=== PATIENT | male | born 1950 | race Caucasian/White ===

== ENCOUNTER → 2016-06-08 | Outpatient (CLI) | payer OTHER ==
[2014-12-27 17:55] VITALS: BP 121/69
[~2016-06-08] MED LIST: ASPI325T4 PO; CARV6.25 PO; CLOP75TA PO; LISI2.5T PO; NITR0.4T SL; SIMV40TA3 PO
--- NOTE | 2016-06-08 16:07 | CARD ---
APPROVED REPORT EXAM: Two-dimensional and M-mode echocardiogram with Doppler and color Doppler. Other Information Quality : GoodHR: 60bpm Rhythm : NSR INDICATION Chronic systolic heart failure RISK FACTORS Hypertension Family History 2D DIMENSIONS RVDd2.9 (2.9-3.5cm)Left Atrium(2D)3.0 (1.6-4.0cm) IVSd0.9 (0.7-1.1cm)Aortic Root(2D)3.9 (2.0-3.7cm) LVDd5.7 (3.9-5.9cm)LVOT Diameter2.5 (1.8-2.4cm) PWd0.9 (0.7-1.1cm)LVDs4.8 (2.5-4.0cm) FS (%) 16.0 %SV52.5 ml LVEF(%)33.3 (>50%) Aortic Valve AoV Peak Moreno.138.5cm/sAoV VTI30.6cm AO Peak GR.7.7mmHgLVOT Peak Moreno.109.1cm/s AO Mean GR.4mmHgAVA (VMAX)3.75cm2 Mitral Valve MV E Mfoetduj70.2cm/sMV E Peak Gr.2mmHg MV DECEL [id number] A Arfjjxmi56.9cm/s MV E Mean Gr.1mmHgE/A Ratio1.3 MV A Sbqkducu170uq Pulmonary Valve PV Peak Twkvtofa343.1cm/s Tricuspid Valve TR P. Djqsolss441oq/sTR Peak Gr.23mmHg Pulmonary Vein S1 Uronpito37.0cm/sD2 Njhwxgtn64.4cm/s PVa ysyievpx80nrsy LEFT VENTRICLE The left ventricle is normal size. There is normal left ventricular wall thickness. Left ventricle sy stolic function is moderately impaired. The Ejection Fraction is 35-40%. There is moderate global hyp okinesis of the left ventricle. There is severe hypokinesis of the septum. The left ventricular diast olic function and filling is normal for age. No left ventricle thrombus noted on this study. RIGHT VENTRICLE The right ventricle is normal size. There is normal right ventricular wall thickness. The right ventr icular systolic function is normal. A defibrillator lead is noted in the right ventricle. ATRIA The left atrium size is normal. The right atrium size is normal. The interatrial septum is intact wit h no evidence for an atrial septal defect or patent foramen ovale as noted on 2-D or Doppler imaging. AORTIC VALVE The aortic valve is mildly The aortic valve is trileaflet. Doppler and Color Flow revealed no signifi cant aortic regurgitation. There is no significant aortic valvular stenosis. MITRAL VALVE The mitral valve leaflets are thickened. There is no evidence of mitral valve prolapse. There is no m itral valve stenosis. Doppler and Color Flow revealed mild mitral regurgitation. TRICUSPID VALVE Doppler and Color Flow revealed mild tricuspid regurgitation. The pulmonary artery systolic pressure is estimated at 26 mmHg. There is no pulmonary hypertension. PULMONIC VALVE Doppler and Color Flow revealed mild pulmonic valvular regurgitation. There is no pulmonic valvular s tenosis. GREAT VESSELS The aortic root is mildly enlarged. The ascending aorta is normal in size. The IVC was obscured, unab le to assess. PERICARDIAL EFFUSION There is no evidence of significant pericardial effusion. Critical Notification Critical Value: No <Conclusion> Left ventricle systolic function is moderately impaired. The Ejection Fraction is 35-40%. There is moderate global hypokinesis of the left ventricle. There is severe hypokinesis of the septum . A defibrillator lead is noted in the right ventricle.
== END | disposition home or self-care (01) ==
LOC: ECHO 09:57
PROVIDERS: ATTEND Internal Medicine Cardiovascular Disease
DX: I50.22 Chronic systolic (congestive) heart failure (principal)
CPT/HCPCS: 93306

== ENCOUNTER → 2017-03-23 | Outpatient (CLI) | payer OTHER ==
[2017-03-23 12:46] LABS: ADD MAN DIFF? NO
[2017-03-23 12:59] LABS: BASO # 0.1 x10^3/uL (0.0-0.2); BASO % 1 % (0-3); EOS # 0.5 x10^3/uL (0.0-0.7); EOS % 8 % (0-3); HEMATOCRIT 45.4 % (39.0-53.0); HEMOGLOBIN 15.9 g/dL (13.0-17.5); LYMPH # 2.2 x10^3/uL (1.0-4.8); LYMPH % 32 % (24-48); MEAN CORPUSCULAR HEMOGLOBIN 32 pg (25-35); MEAN CORPUSCULAR HGB CONC 35 g/dL (31-37); MEAN CORPUSCULAR VOLUME 92 fL (79-100); MONO # 0.6 x10^3/uL (0.0-1.1); MONO % 8 % (0-9); NEUT # 3.5 x10^3uL (1.8-7.7); NEUT % 51 % (31-73); PLATELET COUNT 191 x10^3/uL (140-400); RED BLOOD COUNT 4.93 x10^6/uL (4.30-5.70); WHITE BLOOD COUNT 6.8 x10^3/uL (4.0-11.0)
[2017-03-23 13:04] LABS: BILIRUBIN,URINE NEGATIVE (NEG); CLARITY,URINE CLEAR; COLOR,URINE YELLOW; GLUCOSE,URINE NEGATIVE (NEG); NITRITE,URINE NEGATIVE (NEG); PH,URINE 5.5; PROTEIN,URINE NEGATIVE (NEG-TRACE); UROBILINOGEN,URINE 0.2 mg/dL (0.2 mg/dL)
[2017-03-23 13:19] LABS: ALBUMIN 4.1 g/dL (3.4-5.0); ALK PHOS 50 U/L (46-116); ALT (SGPT) 28 U/L (16-63); ANION GAP 4 (6-14); AST (SGOT) 23 U/L (15-37); BLOOD UREA NITROGEN 18 mg/dL (8-26); BUN/CREATININE RATIO 16 (6-20); CALCIUM 9.3 mg/dL (8.5-10.1); CARBON DIOXIDE 33 mmol/L (21-32); CHLORIDE 101 mmol/L (98-107); CHOLESTEROL 197 mg/dL (0-200); CREATININE 1.1 mg/dL (0.7-1.3); GFR 67.2; GLUCOSE 109 mg/dL (70-99); HDLC 60 mg/dL (40-60); LDLC 123 mg/dL (0-100); MAGNESIUM 2.3 mg/dL (1.8-2.4); NON-HDL CHOLESTEROL 137 mg/dL (0-129); POTASSIUM 5.2 mmol/L (3.5-5.1); SODIUM 138 mmol/L (136-145); TOTAL BILIRUBIN 0.4 mg/dL (0.2-1.0); TOTAL PROTEIN 8.2 g/dL (6.4-8.2); TRIGLYCERIDES 71 mg/dL (0-150); URIC ACID 6.8 mg/dL (3.5-7.2); VLDLC 14 mg/dL (0-40)
[2017-03-23 13:20] LABS: CHOLESTEROL/HDL RATIO 3.3
[2017-03-23 13:23] LABS: BACTERIA,URINE 0 /HPF (0-FEW); WBC,URINE OCC /HPF (0-4)
[2017-03-23 13:32] LABS: THYROID STIM HORMONE (TSH) 1.633 uIU/mL (0.358-3.74)
[2017-03-23 13:44] LABS: PROSTATE SPECIFIC ANTIGEN 0.75 ng/mL (0.00-4.00)
[2017-03-23 14:07] LABS: SEDIMENTATION RATE 1 (0-15)
[2017-03-23 22:15] LABS: HEMOGLOBIN A1C 5.2 % (4.8-5.6)
[2017-03-24 00:13] LABS: HCV ANTIBODY <0.1 s/co ratio (0.0-0.9)
== END | disposition home or self-care (01) ==
LOC: LAB 12:27
DX: Z12.5 Encounter for screening for malignant neoplasm of prostate (principal); I25.10 Atherosclerotic heart disease of native coronary artery without angina pectoris; I10 Essential (primary) hypertension; I42.9 Cardiomyopathy, unspecified; M15.8 Other polyosteoarthritis; R79.89 Other specified abnormal findings of blood chemistry; Z72.89 Other problems related to lifestyle
CPT/HCPCS: 36415; 80053; 80061; 81001; 82306; 83036; 83735; 84443; 84550; 85025; 85651; 86803; G0103

== ENCOUNTER → 2017-04-06 | Outpatient (CLI) | payer OTHER | END | disposition home or self-care (01) | LOC: SPEC 17:14 | DX: D48.5 Neoplasm of uncertain behavior of skin (principal) | CPT/HCPCS: 88305 ==

== ENCOUNTER → 2017-04-24 | Outpatient (CLI) | payer OTHER ==
[2017-04-24 15:02] LABS: BILIRUBIN,URINE NEGATIVE (NEG); CLARITY,URINE CLEAR; COLOR,URINE YELLOW; GLUCOSE,URINE NEGATIVE (NEG); NITRITE,URINE NEGATIVE (NEG); PH,URINE 5.5; PROTEIN,URINE NEGATIVE (NEG-TRACE); UROBILINOGEN,URINE 0.2 mg/dL (0.2 mg/dL)
[2017-04-24 15:16] LABS: BACTERIA,URINE 0 /HPF (0-FEW); RBC,URINE 0 /HPF (0-2); SQUAMOUS EPITHELIAL CELL,UR OCC /LPF; WBC,URINE 0 /HPF (0-4)
== END | disposition home or self-care (01) ==
LOC: SPEC 14:32
DX: R82.90 Unspecified abnormal findings in urine (principal)
CPT/HCPCS: 81001

== ENCOUNTER → 2017-09-27 | Outpatient (CLI) | payer OTHER ==
[2014-12-27 17:55] VITALS: BP 121/69
[~2017-09-27] MED LIST changes: -ASPI325T4 PO; +ASPI325T8 PO
[2017-09-27 17:24] LABS: CALCIUM 9.3 mg/dL (8.5-10.1); CREATININE 1.1 mg/dL (0.7-1.3); POTASSIUM 4.4 mmol/L (3.5-5.1)
== END | disposition home or self-care (01) ==
LOC: SPEC 16:58
PROVIDERS: ATTEND Internal Medicine Cardiovascular Disease
DX: I11.0 Hypertensive heart disease with heart failure (principal); I50.22 Chronic systolic (congestive) heart failure; I25.10 Atherosclerotic heart disease of native coronary artery without angina pectoris; E78.00 Pure hypercholesterolemia, unspecified; Z87.891 Personal history of nicotine dependence; Z90.49 Acquired absence of other specified parts of digestive tract
CPT/HCPCS: 36415; 80048

== ENCOUNTER → 2018-01-08 | Outpatient (CLI) | payer OTHER ==
[2014-12-27 17:55] VITALS: BP 121/69
--- NOTE | 2018-01-08 16:56 | CARD ---
MR#: [id number] Date of Study: 01/08/2018 Ordering Physician: XU BLAKELY, Referring Physician: XU BLAKELY, Tech: Windy Hanley APPROVED REPORT EXAM: Two-dimensional and M-mode echocardiogram with Doppler and color Doppler. Other Information Quality : Good INDICATION Cardiomyopathy RISK FACTORS Hypertension Hyperlipidemia 2D DIMENSIONS Left Atrium(2D)3.2 (1.6-4.0cm)IVSd1.0 (0.7-1.1cm) Aortic Root(2D)3.6 (2.0-3.7cm)LVDd4.7 (3.9-5.9cm) LVOT Diameter2.5 (1.8-2.4cm)PWd1.2 (0.7-1.1cm) LVDs3.0 (2.5-4.0cm)FS (%) 35.4 % SV66.8 ml Aortic Valve AoV Peak Moreno.109.0cm/sAoV VTI20.3cm AO Peak GR.4.8mmHgLVOT Peak Moreno.95.6cm/s LVOT VTI 20.34cmAO Mean GR.3mmHg NAZARIO (VMAX)3.90be8GNF (VTI)4.75cm2 Mitral Valve MV E Xlwhjgoo72.8cm/sMV DECEL QUMX214wl MV A Zjwickfs73.4cm/sMV VQZ47st E/A Ratio1.1MVA (PHT)2.35cm2 TDI E/Lateral E'6.1E/Medial E'9.4 Pulmonary Valve PV Peak Tplryhkq565.0cm/sPV Peak Grad.5mmHg Tricuspid Valve RAP [id number] Pulmonary Vein S1 Odziwxba50.2cm/sD2 Bniidtvf49.1cm/s LEFT VENTRICLE Technically difficult study. The left ventricle is normal size. There is borderline concentric left v entricular hypertrophy. The systolic function is mild to moderately impaired. The Ejection Fraction i s estimated at 35 to 40%. There is global hypokinesis of the left ventricle. Transmitral Doppler flow pattern is Grade II-pseudonormal filling dynamics. RIGHT VENTRICLE The right ventricle is normal size. There is normal right ventricular wall thickness. The right ventr icular systolic function is normal. ATRIA The left atrium size is normal. The right atrium size is normal. There is a thickening or calcificati on in the right atrium. The interatrial septum is intact with no evidence for an atrial septal defect or patent foramen ovale as noted on 2-D or Doppler imaging. AORTIC VALVE The aortic valve is thickened but opens well. Doppler and Color Flow revealed trace aortic regurgitat ion. There is no significant aortic valvular stenosis. MITRAL VALVE The mitral valve is normal in structure and function. Doppler and Color-flow revealed trace to mild m itral regurgitation. TRICUSPID VALVE The tricuspid valve is normal in structure and function. Doppler and Color Flow revealed trace tricus pid regurgitation. PULMONIC VALVE The pulmonic valve is not well visualized. Doppler and Color Flow revealed trace pulmonic valvular re gurgitation. GREAT VESSELS The aortic root is normal in size. Normal pulmonary venous flow (Doppler). The IVC was not visualized . PERICARDIAL EFFUSION There is no evidence of significant pericardial effusion. Critical Notification Critical Value: No <Conclusion> Technically difficult study. The left ventricle is normal size. The systolic function is mild to moderately impaired. The Ejection Fraction is estimated at 35 to 40%. There is global hypokinesis of the left ventricle. There is borderline concentric left ventricular hypertrophy. There is no significant aortic valvular stenosis. Doppler and Color Flow revealed trace aortic regurgitation. Doppler and Color-flow revealed trace to mild mitral regurgitation. Doppler and Color Flow revealed trace tricuspid regurgitation. Signed by : Xu Blakely MD Electronically Approved : 01/08/2018 16:55:52
== END | disposition home or self-care (01) ==
LOC: ECHO 11:02
PROVIDERS: ATTEND Internal Medicine Cardiovascular Disease
DX: I34.0 Nonrheumatic mitral (valve) insufficiency (principal); I37.1 Nonrheumatic pulmonary valve insufficiency; I42.9 Cardiomyopathy, unspecified; I10 Essential (primary) hypertension; E78.5 Hyperlipidemia, unspecified
CPT/HCPCS: 93306

== ENCOUNTER 2018-07-13 23:47 | Inpatient (IN) | payer OTHER ==
[~2018-07-13] VITALS: Ht 180.3 cm; Wt 91.4 kg
[2018-07-14] VITALS (7 sets, daily range): BP systolic 98–118; BP diastolic 56–72
[2018-07-14] MEDS ORDERED: IV NORMAL SALINE 1000ML BAG 1,000 ML IV ONE (02:30)
[2018-07-14] MEDS ORDERED: ASPIRIN 325 MG TABLET PO ONE (02:45)
[2018-07-14 03:16] LABS: BASO # 0.1 x10^3/uL (0.0-0.2); BASO % 1 % (0-3); EOS # 0.5 x10^3/uL (0.0-0.7); EOS % 6 % (0-3); HEMATOCRIT 43.7 % (39.0-53.0); HEMOGLOBIN 15.1 g/dL (13.0-17.5); LYMPH % 37 % (24-48); MEAN CORPUSCULAR HEMOGLOBIN 32 pg (25-35); MEAN CORPUSCULAR HGB CONC 35 g/dL (31-37); MEAN CORPUSCULAR VOLUME 93 fL (79-100); MONO # 0.6 x10^3/uL (0.0-1.1); MONO % 7 % (0-9); NEUT # 4.1 x10^3uL (1.8-7.7); NEUT % 49 % (31-73); PLATELET COUNT 169 x10^3/uL (140-400); RED BLOOD COUNT 4.72 x10^6/uL (4.30-5.70); WHITE BLOOD COUNT 8.2 x10^3/uL (4.0-11.0)
[2018-07-14 03:26] LABS: PROTHROMBIN TIME PATIENT 12.7 SEC (11.7-14.0)
[2018-07-14 03:34] LABS: CALCIUM 9.1 mg/dL (8.5-10.1); CREATININE 1.1 mg/dL (0.7-1.3); GFR 66.8; POTASSIUM 3.6 mmol/L (3.5-5.1)
[2018-07-14 03:43] LABS: ALBUMIN 4.1 g/dL (3.4-5.0); ALBUMIN/GLOBULIN RATIO 1.1 (1.0-1.7); MAGNESIUM 2.2 mg/dL (1.8-2.4); TOTAL BILIRUBIN 0.4 mg/dL (0.2-1.0); TOTAL PROTEIN 7.9 g/dL (6.4-8.2)
[2018-07-14] MEDS ORDERED: HEPARIN for IV BOLUS 10,000 UNIT/10 ML VIAL. IV ONE (03:45)
[2018-07-14] MEDS ORDERED: fentaNYL PF VIAL 100 MCG/2 ML VIAL IV PRN (04:00)
[2018-07-14] MEDS ORDERED: ONDANSETRON PF 4 MG/2 ML VIAL. IV PRN (04:00)
[2018-07-14] MEDS: HEPARIN 25,000UTS/500ML PREMIX 500 ML IV PRN ×2 (04:41→04:56)
--- NOTE | 2018-07-14 04:48 | PHYS DOC ---
Past Medical History Past Medical History: High Cholesterol, Hypertension, [place] Past Surgical History: Angioplasty, Appendectomy, Tonsillectomy, Other Additional Past Surgical Histo: defibulator, left knee, STENT X4 Alcohol Use: Heavy Drug Use: None Adult General Chief Complaint Chief Complaint: BACK PAIN - NO INJURY HPI HPI Patient is a 68 year old [f__sex] who presents with [] Review of Systems Review of Systems Constitutional: Denies fever or chills [] Eyes: Denies change in visual acuity, redness, or eye pain [] HENT: Denies nasal congestion or sore throat [] Respiratory: Denies cough or shortness of breath [] Cardiovascular: No additional information not addressed in HPI [] GI: Denies abdominal pain, nausea, vomiting, bloody stools or diarrhea [] : Denies dysuria or hematuria [] Musculoskeletal: Denies back pain or joint pain [] Integument: Denies rash or skin lesions [] Neurologic: Denies headache, focal weakness or sensory changes [] Endocrine: Denies polyuria or polydipsia [] All other systems were reviewed and found to be within normal limits, except as documented in this note. Current Medications Current Medications Current Medications Medications (Trade) Dose Ordered Sig/Angel Start Time Stop Time Status Last Admin Dose Admin Aspirin (Robert Aspirin) 325 mg 1X ONCE 07/14/18 02:45 07/14/18 02:47 DC 07/14/18 03:21 325 MG Fentanyl Citrate (Fentanyl 2ml Vial) 50 mcg PRN Q2HR PRN 07/14/18 04:00 Heparin Sodium (Porcine) (Heparin Sodium) 4,000 unit 1X ONCE 07/14/18 03:45 07/14/18 03:48 DC 07/14/18 04:38 4,000 UNIT Heparin Sodium/ Dextrose 500 ml @ 0 mls/hr CONT PRN 07/14/18 03:45 07/14/18 04:41 22.4 MLS/HR Ondansetron HCl (Zofran) 4 mg PRN Q8HRS PRN 07/14/18 04:00 07/15/18 03:59 Sodium Chloride 1,000 ml @ 1,000 mls/hr 1X ONCE 07/14/18 02:30 07/14/18 03:29 DC 07/14/18 03:22 1,000 MLS/HR Allergies Allergies Allergies Coded Allergies Type Severity Reaction Last Updated Verified No Known Drug Allergies 06/17/13 No Physical Exam Physical Exam Constitutional: Well developed, well nourished, no acute distress, non-toxic appearance. [] HENT: Normocephalic, atraumatic, bilateral external ears normal, oropharynx moist, no oral exudates, nose normal. [] Eyes: PERRLA, EOMI, conjunctiva normal, no discharge. [] Neck: Normal range of motion, no tenderness, supple, no stridor. [] Cardiovascular:Heart rate regular rhythm, no murmur [] Lungs & Thorax: Bilateral breath sounds clear to auscultation [] Abdomen: Bowel sounds normal, soft, no tenderness, no masses, no pulsatile masses. [] Skin: Warm, dry, no erythema, no rash. [] Back: No tenderness, no CVA tenderness. [] Extremities: No tenderness, no cyanosis, no clubbing, ROM intact, no edema. [] Neurologic: Alert and oriented X 3, normal motor function, normal sensory function, no focal deficits noted. [] Psychologic: Affect normal, judgement normal, mood normal. [] Current Patient Data Vital Signs Vital Signs Date Time Temp Pulse Resp B/P (MAP) Pulse Ox O2 Delivery O2 Flow Rate FiO2 07/14/18 00:47 97.5 60 16 122/70 (87) 99 Room Air 97.5 Lab Values Laboratory Tests Test 07/14/18 03:00 White Blood Count 8.2 x10^3/uL (4.0-11.0) Red Blood Count 4.72 x10^6/uL (4.30-5.70) Hemoglobin 15.1 g/dL (13.0-17.5) Hematocrit 43.7 % (39.0-53.0) Mean Corpuscular Volume 93 fL (79-100) Mean Corpuscular Hemoglobin 32 pg (25-35) Mean Corpuscular Hemoglobin Concent 35 g/dL (31-37) Red Cell Distribution Width 13.0 % (11.5-14.5) Platelet Count 169 x10^3/uL (140-400) Neutrophils (%) (Auto) 49 % (31-73) Lymphocytes (%) (Auto) 37 % (24-48) Monocytes (%) (Auto) 7 % (0-9) Eosinophils (%) (Auto) 6 % (0-3) H Basophils (%) (Auto) 1 % (0-3) Neutrophils # (Auto) 4.1 x10^3uL (1.8-7.7) Lymphocytes # (Auto) 3.0 x10^3/uL (1.0-4.8) Monocytes # (Auto) 0.6 x10^3/uL (0.0-1.1) Eosinophils # (Auto) 0.5 x10^3/uL (0.0-0.7) Basophils # (Auto) 0.1 x10^3/uL (0.0-0.2) Prothrombin Time 12.7 SEC (11.7-14.0) Prothrombin Time INR 1.0 (0.8-1.1) PTT 26 SEC (24-38) Sodium Level 143 mmol/L (136-145) Potassium Level 3.6 mmol/L (3.5-5.1) Chloride Level 105 mmol/L (98-107) Carbon Dioxide Level 27 mmol/L (21-32) Anion Gap 11 (6-14) Blood Urea Nitrogen 17 mg/dL (8-26) Creatinine 1.1 mg/dL (0.7-1.3) Estimated GFR (Cockcroft-Gault) 66.8 BUN/Creatinine Ratio 15 (6-20) Glucose Level 90 mg/dL (70-99) Calcium Level 9.1 mg/dL (8.5-10.1) Magnesium Level 2.2 mg/dL (1.8-2.4) Total Bilirubin 0.4 mg/dL (0.2-1.0) Aspartate Amino Transferase (AST) 24 U/L (15-37) Alanine Aminotransferase (ALT) 27 U/L (16-63) Alkaline Phosphatase 49 U/L (46-116) Creatine Kinase 246 U/L (39-308) Creatine Kinase MB (Mass) 3.9 ng/mL (0.0-3.6) H Creatine Kinase MB Relative Index 1.6 % (0-4) Troponin I Quantitative 0.622 ng/mL (0.000-0.055) QA-Fxu-C-Type Natriuretic Peptide 886 pg/mL (0-124) H Total Protein 7.9 g/dL (6.4-8.2) Albumin 4.1 g/dL (3.4-5.0) Albumin/Globulin Ratio 1.1 (1.0-1.7) Lipase 237 U/L (73-393) Laboratory Tests 07/14/18 03:00 Laboratory Tests 07/14/18 03:00 EKG EKG @0215 NSR at 60bpm, NO ST elevation, nonspecific t wave inversion III and aVF Radiology/Procedures Radiology/Procedures [] Course & Med Decision Making Course & Med Decision Making Pertinent Labs and Imaging studies reviewed. (See chart for details) [] Dragon Disclaimer Dragon Disclaimer This electronic medical record was generated, in whole or in part, using a voice recognition dictation system. Departure Departure Impression: Primary Impression: NSTEMI (non-ST elevated myocardial infarction) Disposition: ADMITTED INPATIENT Admitting Physician: ZEN (Vinayak) Condition: GUARDED Referrals: SALLY POPE (PCP) Critical Care Time Critical care time was 30 minutes which includes time at bedside, spent in discussion of patient's care with specialists and/or family members, with interpretation of laboratory and/or radiological studies and is exclusive of procedures. ROLANDO MCCOY DO Jul 14, 2018 04:48
--- NOTE | 2018-07-14 04:58 | NUR ---
The patient, ROLANDO ORTA, 68 y/o, M admitted by CALEB AYALA MD, was given written information regarding hospital policies, unit procedures and contact persons. Valuables were checked and patient has wrist pedi meter on and wears glasses. Patient denies pain at this time. RN will continue to monitor. Admission assessment, admission information obtained and reconcile medications.
[2018-07-14 04:59] LABS: BILIRUBIN,URINE NEGATIVE (NEG); CLARITY,URINE CLEAR; COLOR,URINE YELLOW; NITRITE,URINE NEGATIVE (NEG); PROTEIN,URINE NEGATIVE (NEG-TRACE)
[2018-07-14 05:14] LABS: BACTERIA,URINE 0 /HPF (0-FEW); RBC,URINE OCC /HPF (0-2); WBC,URINE 0 /HPF (0-4)
[2018-07-14] MEDS ORDERED: ASPI-612 PO (06:22)
[2018-07-14] MEDS ORDERED: CARV6.253 PO (06:22)
--- NOTE | 2018-07-14 06:45 | NUR ---
Cardiology Consult message left with answering service for Dr Vizcarra regarding NSTEMI admission.
--- NOTE | 2018-07-14 08:07 | PDOC1 ---
History and Physical Date of Admission Date of Admission DATE: 07/14/18 TIME: 08:04 Identification/Chief Complaint Chief Complaint Chest pain Source Source: Patient History of Present Illness History of Present Illness Mr Rubio is a 68yo M w/ PMHx systolic CHF EF 35-40% s/p AICD, High Cholesterol, Hypertension, ETOH use, obesity, CAD s/p 4 stents prior who presents with "feeling funny" and chest discomfort for the past day with some mild associated shortness of breath. Chest pain is 4/10, was substernal and has improved after NTG and heparin. He was found with elevated troponin 0.662, started on heparin infusion, contacted cardiology for admission. This morning his 4 hour troponin has come down to 0.559 and he feels some relief of his discomfort and is asking to eat. EKG - NSR at 60bpm, NO ST elevation, nonspecific t wave inversion III and aVF Past Medical History Cardiovascular: CAD, CHF, HTN, Hyperlipidemia Pulmonary: No pertinent hx GI: No pertinent hx Heme/Onc: No pertinent hx Hepatobiliary: No pertinent hx Psych: No pertinent hx Rheumatologic: No pertinent hx Infectious disease: No pertinent hx ENT: No pertinent hx Renal/: No pertinent hx Endocrine: No pertinent hx Dermatology: No pertinent hx Past Surgical History Past Surgical History: Appendectomy, Total knee replacement (Left), Tonsillectomy Family History Family History: Heart Disease, High Cholestrol, Hypertension Social History Smoke: No ALCOHOL: heavy Drugs: None Current Medications Current Medications Current Medications Aspirin (Robert Aspirin) 325 mg 1X ONCE PO Last administered on 07/14/18at 03:21; Start 07/14/18 at 02:45; Stop 07/14/18 at 02:47; Status DC Sodium Chloride 1,000 ml @ 1,000 mls/hr 1X ONCE IV Last administered on 07/14/18at 03:22; Start 07/14/18 at 02:30; Stop 07/14/18 at 03:29; Status DC Heparin Sodium (Porcine) (Heparin Sodium) 4,000 unit 1X ONCE IV Last administered on 07/14/18at 04:38; Start 07/14/18 at 03:45; Stop 07/14/18 at 03:48; Status DC Heparin Sodium/ Dextrose 500 ml @ 0 mls/hr CONT PRN IV SEE I/O RECORD Last administered on 07/14/18at 04:41; Start 07/14/18 at 03:45 Ondansetron HCl (Zofran) 4 mg PRN Q8HRS PRN IV NAUSEA/VOMITING; Start 07/14/18 at 04:00; Stop 07/15/18 at 03:59 Fentanyl Citrate (Fentanyl 2ml Vial) 50 mcg PRN Q2HR PRN IV PAIN; Start 07/14/18 at 04:00 Active Scripts Active Reported Nitrostat (Nitroglycerin) 0.4 Mg Tab.subl 0.4 Mg SL PRN 1X Coreg (Carvedilol) 6.25 Mg Tablet 6.25 Mg PO BID Simvastatin 40 Mg Tablet 40 Mg PO DAILY Aspirin 325 Mg Tablet 81 Mg PO DAILY Clopidogrel (Clopidogrel Bisulfate) 75 Mg Tablet 75 Mg PO DAILY Lisinopril 2.5 Mg Tablet 2.5 Mg PO DAILY Allergies Allergies: Coded Allergies: No Known Drug Allergies (Unverified , 06/17/13) ROS General: YES: Fatigue, Malaise; No: Chills, Night Sweats, Appetite, Other PSYCHOLOGICAL ROS: No: Anxiety, Behavioral Disorder, Concentration difficultie, Decreased libido, Depression, Disorientation, Hallucinations, Hostility, Irritablity, Memory difficulties, Mood Swings, Obsessive thoughts, Physical abuse, Sexual abuse, Sleep disturbances, Suicidal ideation, Other Eyes: No Blurry vision, No Decreased vision, No Double vision, No Dry eyes, No Excessive tearing, No Eye Pain, No Itchy Eyes, No Loss of vision, No Photophobia, No Scotomata, No Uses contacts, No Uses glasses, No Other HEENT: No: Heacaches, Visual Changes, Hearing change, Nasal congestion, Nasal discharge, Oral lesions, Sinus pain, Sore Throat, Epistaxis, Sneezing, Snoring, Tinnitus, Vertigo, Vocal changes, Other ALLERGY AND IMMUNOLOGY: No: Hives, Insect Bite Sensitivity, Itchy/Watery Eyes, Nasal Congestion, Post Nasal Drip, Seasonal Allergies, Other Hematological and Lymphatic: No: Bleeding Problems, Blood Clots, Blood Transfusions, Brusing, Night Sweats, Pallor, Swollen Lymph Nodes, Other ENDOCRINE: No: Breast Changes, Galactorrhea, Hair Pattern Changes, Hot Flashes, Malaise/lethargy, Mood Swings, Palpitations, Polydipsia/polyuria, Skin Changes, Temperature Intolerance, Unexpected Weight Changes, Other Breast: No New/Changing Breast Lumps, No Nipple changes, No Nipple discharge, No Other Respiratory: YES: Shortness of breath; No: Cough, Hemoptysis, Orthopnea, Pleuritic Pain, SOB with excertion, Sputum Changes, Stridor, Tachypnea, Wheezing, Other Cardiovascular: yes Chest Pain, yes Orthopnea, yes Paroxysmal Noc. Dyspnea, yes Edema; No Palpitations, No Lt Headedness, No Other Gastrointestinal: Yes Nausea; No Vomiting, No Abdominal Pain, No Diarrhea, No Constipation, No Melena, No Hematochezia, No Other Genitourinary: No Dysuria, No Frequency, No Incontinence, No Hematuria, No Retention, No Discharge, No Urgency, No Pain, No Flank Pain, No Other, No , No , No , No , No , No , No Musculoskeletal: No Gait Disturbance, No Joint Pain, No Joint Stiffness, No Joint Swelling, No Muscle Pain, No Muscular Weakness, No Pain In:, No Swelling In:, No Other Neurological: No Behavorial Changes, No Bowel/Bladder ControlChng, No Confusion, No Dizziness, No Gait Disturbance, No Headaches, No Impaired Coord/balance, No Memory Loss, No Numbness/Tingling, No Seizures, No Speech Problems, No Tremors, No Visual Changes, No Weakness, No Other Skin: No Dry Skin, No Eczema, No Hair Changes, No Lumps, No Mole Changes, No Mottling, No Nail Changes, No Pruritus, No Rash, No Skin Lesion Changes, No Other, No Acne Physical Exam General: Alert, Oriented X3, Cooperative, No acute distress HEENT: Atraumatic, PERRLA, EOMI, Mucous membr. moist/pink Lungs: Clear to auscultation, Normal air movement Heart: S1S2, RRR Abdomen: Normal bowel sounds, Soft, No tenderness, No hepatosplenomegaly, No masses Extremities: No clubbing, No cyanosis, Normal pulses, No tenderness/swelling, Other (scant edema bilaterally) Skin: No rashes, No breakdown, No significant lesion Neuro: Normal gait, Normal speech, Strength at 5/5 X4 ext, Normal tone, Sensation intact, Cranial nerves 3-12 NL, Reflexes 2+ Psych/Mental Status: Mental status NL, Mood NL Vitals Vitals Vital Signs Date Time Temp Pulse Resp B/P (MAP) Pulse Ox O2 Delivery O2 Flow Rate FiO2 07/14/18 04:58 97.5 60 18 113/72 (86) 97 Room Air 97.5 Labs Labs Laboratory Tests Test 07/14/18 03:00 07/14/18 03:10 07/14/18 07:00 White Blood Count 8.2 x10^3/uL (4.0-11.0) Red Blood Count 4.72 x10^6/uL (4.30-5.70) Hemoglobin 15.1 g/dL (13.0-17.5) Hematocrit 43.7 % (39.0-53.0) Mean Corpuscular Volume 93 fL (79-100) Mean Corpuscular Hemoglobin 32 pg (25-35) Mean Corpuscular Hemoglobin Concent 35 g/dL (31-37) Red Cell Distribution Width 13.0 % (11.5-14.5) Platelet Count 169 x10^3/uL (140-400) Neutrophils (%) (Auto) 49 % (31-73) Lymphocytes (%) (Auto) 37 % (24-48) Monocytes (%) (Auto) 7 % (0-9) Eosinophils (%) (Auto) 6 % (0-3) Basophils (%) (Auto) 1 % (0-3) Neutrophils # (Auto) 4.1 x10^3uL (1.8-7.7) Lymphocytes # (Auto) 3.0 x10^3/uL (1.0-4.8) Monocytes # (Auto) 0.6 x10^3/uL (0.0-1.1) Eosinophils # (Auto) 0.5 x10^3/uL (0.0-0.7) Basophils # (Auto) 0.1 x10^3/uL (0.0-0.2) Prothrombin Time 12.7 SEC (11.7-14.0) Prothromb Time International Ratio 1.0 (0.8-1.1) Activated Partial Thromboplast Time 26 SEC (24-38) Sodium Level 143 mmol/L (136-145) Potassium Level 3.6 mmol/L (3.5-5.1) Chloride Level 105 mmol/L (98-107) Carbon Dioxide Level 27 mmol/L (21-32) Anion Gap 11 (6-14) Blood Urea Nitrogen 17 mg/dL (8-26) Creatinine 1.1 mg/dL (0.7-1.3) Estimated GFR (Cockcroft-Gault) 66.8 BUN/Creatinine Ratio 15 (6-20) Glucose Level 90 mg/dL (70-99) Calcium Level 9.1 mg/dL (8.5-10.1) Magnesium Level 2.2 mg/dL (1.8-2.4) Total Bilirubin 0.4 mg/dL (0.2-1.0) Aspartate Amino Transf (AST/SGOT) 24 U/L (15-37) Alanine Aminotransferase (ALT/SGPT) 27 U/L (16-63) Alkaline Phosphatase 49 U/L (46-116) Creatine Kinase 246 U/L (39-308) Creatine Kinase MB (Mass) 3.9 ng/mL (0.0-3.6) Creatine Kinase MB Relative Index 1.6 % (0-4) Troponin I Quantitative 0.622 ng/mL (0.000-0.055) 0.559 ng/mL (0.000-0.055) HH-Pue-B-Type Natriuretic Peptide 886 pg/mL (0-124) Total Protein 7.9 g/dL (6.4-8.2) Albumin 4.1 g/dL (3.4-5.0) Albumin/Globulin Ratio 1.1 (1.0-1.7) Lipase 237 U/L (73-393) Urine Collection Type Unknown Urine Color Yellow Urine Clarity Clear Urine pH 6.0 Urine Specific [place] 1.020 Urine Protein Negative mg/dL (NEG-TRACE) Urine Glucose (UA) Negative mg/dL (NEG) Urine Ketones (Stick) Trace mg/dL (NEG) Urine Blood Negative (NEG) Urine Nitrite Negative (NEG) Urine Bilirubin Negative (NEG) Urine Urobilinogen Dipstick 1.0 mg/dL (0.2 mg/dL) Urine Leukocyte Esterase Negative (NEG) Urine RBC Occ /HPF (0-2) Urine WBC 0 /HPF (0-4) Urine Bacteria 0 /HPF (0-FEW) Urine Mucus Mod /LPF Laboratory Tests Test 07/14/18 03:00 07/14/18 03:10 07/14/18 07:00 White Blood Count 8.2 x10^3/uL (4.0-11.0) Red Blood Count 4.72 x10^6/uL (4.30-5.70) Hemoglobin 15.1 g/dL (13.0-17.5) Hematocrit 43.7 % (39.0-53.0) Mean Corpuscular Volume 93 fL (79-100) Mean Corpuscular Hemoglobin 32 pg (25-35) Mean Corpuscular Hemoglobin Concent 35 g/dL (31-37) Red Cell Distribution Width 13.0 % (11.5-14.5) Platelet Count 169 x10^3/uL (140-400) Neutrophils (%) (Auto) 49 % (31-73) Lymphocytes (%) (Auto) 37 % (24-48) Monocytes (%) (Auto) 7 % (0-9) Eosinophils (%) (Auto) 6 % (0-3) Basophils (%) (Auto) 1 % (0-3) Neutrophils # (Auto) 4.1 x10^3uL (1.8-7.7) Lymphocytes # (Auto) 3.0 x10^3/uL (1.0-4.8) Monocytes # (Auto) 0.6 x10^3/uL (0.0-1.1) Eosinophils # (Auto) 0.5 x10^3/uL (0.0-0.7) Basophils # (Auto) 0.1 x10^3/uL (0.0-0.2) Prothrombin Time 12.7 SEC (11.7-14.0) Prothromb Time International Ratio 1.0 (0.8-1.1) Activated Partial Thromboplast Time 26 SEC (24-38) Sodium Level 143 mmol/L (136-145) Potassium Level 3.6 mmol/L (3.5-5.1) Chloride Level 105 mmol/L (98-107) Carbon Dioxide Level 27 mmol/L (21-32) Anion Gap 11 (6-14) Blood Urea Nitrogen 17 mg/dL (8-26) Creatinine 1.1 mg/dL (0.7-1.3) Estimated GFR (Cockcroft-Gault) 66.8 BUN/Creatinine Ratio 15 (6-20) Glucose Level 90 mg/dL (70-99) Calcium Level 9.1 mg/dL (8.5-10.1) Magnesium Level 2.2 mg/dL (1.8-2.4) Total Bilirubin 0.4 mg/dL (0.2-1.0) Aspartate Amino Transf (AST/SGOT) 24 U/L (15-37) Alanine Aminotransferase (ALT/SGPT) 27 U/L (16-63) Alkaline Phosphatase 49 U/L (46-116) Creatine Kinase 246 U/L (39-308) Creatine Kinase MB (Mass) 3.9 ng/mL (0.0-3.6) Creatine Kinase MB Relative Index 1.6 % (0-4) Troponin I Quantitative 0.622 ng/mL (0.000-0.055) 0.559 ng/mL (0.000-0.055) JL-Gzm-V-Type Natriuretic Peptide 886 pg/mL (0-124) Total Protein 7.9 g/dL (6.4-8.2) Albumin 4.1 g/dL (3.4-5.0) Albumin/Globulin Ratio 1.1 (1.0-1.7) Lipase 237 U/L (73-393) Urine Collection Type Unknown Urine Color Yellow Urine Clarity Clear Urine pH 6.0 Urine Specific [place] 1.020 Urine Protein Negative mg/dL (NEG-TRACE) Urine Glucose (UA) Negative mg/dL (NEG) Urine Ketones (Stick) Trace mg/dL (NEG) Urine Blood Negative (NEG) Urine Nitrite Negative (NEG) Urine Bilirubin Negative (NEG) Urine Urobilinogen Dipstick 1.0 mg/dL (0.2 mg/dL) Urine Leukocyte Esterase Negative (NEG) Urine RBC Occ /HPF (0-2) Urine WBC 0 /HPF (0-4) Urine Bacteria 0 /HPF (0-FEW) Urine Mucus Mod /LPF Images Images CXR - read pending ECHO - 01/08/2018 Technically difficult study. The left ventricle is normal size. The systolic function is mild to moderately impaired. The Ejection Fraction is estimated at 35 to 40%. There is global hypokinesis of the left ventricle. There is borderline concentric left ventricular hypertrophy. There is no significant aortic valvular stenosis. Doppler and Color Flow revealed trace aortic regurgitation. Doppler and Color-flow revealed trace to mild mitral regurgitation. Doppler and Color Flow revealed trace tricuspid regurgitation. VTE Prophylaxis Ordered VTE Prophylaxis Devices: Yes VTE Pharmacological Prophylaxi: Yes Assessment/Plan Assessment/Plan A/P: NSTEMI - heparin GTT, cardiology consulted Acute systolic CHF exacerbation - mild exacerbation likely cause of NSTEMI or vice-versa with history of chronic systolic CHF EF 35-40% s/p AICD. No recent shocks, but device has not been interrogated. High Cholesterol - LDL 134 not at goal Hypertension - controlled, cont meds ETOH use - counseled on cessation Obesity - counseled on weight loss, look into cardiac rehab, if eligible CAD s/p 4 stents - appears to having unstable angina symptoms with NSTEMI currently. Cardiology consulted. FEN - NPO, ok for cardiac diet from my standpoint unless cardiology plans for angiogram PPX - heparin gtt FULL CODE Dispo - Inpatient CVC for NSTEMI and mild CHF exacerbation CALEB AYALA MD Jul 14, 2018 08:07
[2018-07-14] MEDS ORDERED: NITROGLYCERIN SUBLINGUAL 0.4 MG BOTTLE OF 25. SL PRN (08:15)
[2018-07-14] MEDS ORDERED: CLOPIDOGREL BISULFATE 75 MG TABLET PO SCH (09:00)
[2018-07-14] MEDS ORDERED: LISINOPRIL 5 MG TABLET. PO SCH ×2 (09:00→21:00)
[2018-07-14] MEDS ORDERED: ASPIRIN CHEWABLE 81 MG TABLET. PO SCH ×2 (09:00→21:00)
[2018-07-14] MEDS ORDERED: ANTI-COAG MONITOR BY PHARMACY. MC PRN (10:45)
[2018-07-14] MEDS: POTASSIUM CHLORIDE 20 MEQ TABLET.ER. PO SCH (11:28)
[2018-07-14] MEDS: FUROSEMIDE 20 MG/2 ML VIAL. IVP SCH (11:29)
[2018-07-14] MEDS: CARVEDILOL 6.25 MG TABLET. PO SCH ×2 (11:40→18:06)
--- NOTE | 2018-07-14 13:23 | EKG ---
[facility] [address] [place] [address] Test Date: 2018-07-14 Test Time: 02:15:32 Pat Name: ROLANDO ORTA Department: Room: 210 1 Gender: M [employer]: : 1950 Requested By: ROLANDO MCCOY Order Number: [id number] Reading MD: Gus Eckert MD Measurements Intervals [place] Rate: 60 P: 0 MT: 170 QRS: -21 QRSD: 92 T: -29 QT: 394 QTc: 397 Interpretive Statements SINUS RHYTHM PRIOR INFERIOR INFARCT PRIOR SEPTAL INFARCT Electronically Signed On 07-15-2018 11:06:22 CDT by Gus Eckert MD
--- NOTE | 2018-07-14 14:23 | PDOC2 ---
CONSULT Date of Consult Date of Consult DATE: 07/14/18 TIME: 14:18 Reason for Consult Reason for Consult: chest pain Referring Physician Referring Physician: Dr. Licea Identification/Chief Complaint Chief Complaint Chest pain Source Source: Chart review, Patient History of Present Illness Reason for Visit: The patient is a 68-year-old male who presented to the emergency room with episodes of chest pressure. This has been present for several hours. Initial EKG showed no acute ischemic changes but an old inferior myocardial infarction. Peak troponin was 0.662. Patient has been treated with heparin overnight and his baseline medications and is pain-free this morning. Echocardiograms have shown an ejection fraction of 35-40% and the patient does have an AICD in place. He is resting comfortably this morning. Past Medical History Cardiovascular: CAD, CHF, HTN, Hyperlipidemia Pulmonary: No pertinent hx GI: No pertinent hx Heme/Onc: No pertinent hx Hepatobiliary: No pertinent hx Psych: No pertinent hx Rheumatologic: No pertinent hx Infectious disease: No pertinent hx ENT: No pertinent hx Renal/: No pertinent hx Endocrine: No pertinent hx Dermatology: No pertinent hx Past Surgical History Past Surgical History: Appendectomy, Total knee replacement (Left), T onsillectomy, Other (AICD placement.) Family History Family History: Heart Disease, High Cholestrol, Hypertension Social History No ALCOHOL: social Drugs: None Current Medications Current Medications Current Medications Aspirin (Robert Aspirin) 325 mg 1X ONCE PO Last administered on 07/14/18at 03:21; Start 07/14/18 at 02:45; Stop 07/14/18 at 02:47; Status DC Sodium Chloride 1,000 ml @ 1,000 mls/hr 1X ONCE IV Last administered on 07/14/18at 03:22; Start 07/14/18 at 02:30; Stop 07/14/18 at 03:29; Status DC Heparin Sodium (Porcine) (Heparin Sodium) 4,000 unit 1X ONCE IV Last administered on 07/14/18at 04:38; Start 07/14/18 at 03:45; Stop 07/14/18 at 03:48; Status DC Heparin Sodium/ Dextrose 500 ml @ 0 mls/hr CONT PRN IV SEE I/O RECORD Last administered on 07/14/18at 04:41; Start 07/14/18 at 03:45 Ondansetron HCl (Zofran) 4 mg PRN Q8HRS PRN IV NAUSEA/VOMITING; Start 07/14/18 at 04:00; Stop 07/15/18 at 03:59 Fentanyl Citrate (Fentanyl 2ml Vial) 50 mcg PRN Q2HR PRN IV PAIN; Start 07/14/18 at 04:00 Aspirin (Children'S Aspirin) 81 mg DAILY PO ; Start 07/14/18 at 09:00; Stop 07/14/18 at 11:43; Status DC Carvedilol (Coreg) 6.25 mg BIDWMEALS PO Last administered on 07/14/18at 11:40; Start 07/14/18 at 09:00 Clopidogrel Bisulfate (Plavix) 75 mg DAILY PO ; Start 07/14/18 at 09:00; Stop 07/14/18 at 11:15; Status DC Nitroglycerin (Nitrostat) 0.4 mg PRN Q5MIN PRN SL CHEST PAIN; Start 07/14/18 at 08:15 Lisinopril (Prinivil) 2.5 mg DAILY PO ; Start 07/14/18 at 09:00; Stop 07/14/18 at 11:42; Status DC Simvastatin (Zocor) 40 mg QHS PO ; Start 07/14/18 at 21:00 Potassium Chloride (Klor-Con) 20 meq DAILYWBKFT PO Last administered on 07/14/18at 11:28; Start 07/14/18 at 10:30 Furosemide (Lasix) 20 mg DAILY IVP Last administered on 07/14/18at 11:29; Start 07/14/18 at 11:00 Info (Anti-Coagulation Monitoring By Pharmacy) 1 each PRN DAILY PRN MC SEE COMMENTS Last administered on 07/14/18at 11:59; Start 07/14/18 at 10:45 Aspirin (Children'S Aspirin) 81 mg HS PO ; Start 07/14/18 at 21:00 Lisinopril (Prinivil) 2.5 mg HS PO ; Start 07/14/18 at 21:00 Active Scripts Active Reported Nitrostat (Nitroglycerin) 0.4 Mg Tab.subl 0.4 Mg SL PRN 1X Coreg (Carvedilol) 6.25 Mg Tablet 6.25 Mg PO BID Simvastatin 40 Mg Tablet 40 Mg PO DAILY Aspirin 325 Mg Tablet 81 Mg PO DAILY Clopidogrel (Clopidogrel Bisulfate) 75 Mg Tablet 75 Mg PO DAILY Lisinopril 2.5 Mg Tablet 2.5 Mg PO DAILY Allergies Allergies: Coded Allergies: No Known Drug Allergies (Unverified , 06/17/13) ROS Respiratory: YES: SOB with excertion Cardiovascular: yes Chest Pain Physical Exam General: No acute distress HEENT: Atraumatic Lungs: Clear to auscultation Heart: Regular rate Abdomen: Normal bowel sounds Vitals VITALS Vital Signs Date Time Temp Pulse Resp B/P (MAP) Pulse Ox O2 Delivery O2 Flow Rate FiO2 07/14/18 11:40 60 118/66 07/14/18 11:00 97.4 18 100 Room Air 97.4 Labs Labs Laboratory Tests Test 07/14/18 03:00 07/14/18 03:10 07/14/18 07:00 07/14/18 10:40 White Blood Count 8.2 x10^3/uL (4.0-11.0) Red Blood Count 4.72 x10^6/uL (4.30-5.70) Hemoglobin 15.1 g/dL (13.0-17.5) Hematocrit 43.7 % (39.0-53.0) Mean Corpuscular Volume 93 fL (79-100) Mean Corpuscular Hemoglobin 32 pg (25-35) Mean Corpuscular Hemoglobin Concent 35 g/dL (31-37) Red Cell Distribution Width 13.0 % (11.5-14.5) Platelet Count 169 x10^3/uL (140-400) Neutrophils (%) (Auto) 49 % (31-73) Lymphocytes (%) (Auto) 37 % (24-48) Monocytes (%) (Auto) 7 % (0-9) Eosinophils (%) (Auto) 6 % (0-3) Basophils (%) (Auto) 1 % (0-3) Neutrophils # (Auto) 4.1 x10^3uL (1.8-7.7) Lymphocytes # (Auto) 3.0 x10^3/uL (1.0-4.8) Monocytes # (Auto) 0.6 x10^3/uL (0.0-1.1) Eosinophils # (Auto) 0.5 x10^3/uL (0.0-0.7) Basophils # (Auto) 0.1 x10^3/uL (0.0-0.2) Prothrombin Time 12.7 SEC (11.7-14.0) Prothromb Time International Ratio 1.0 (0.8-1.1) Activated Partial Thromboplast Time 26 SEC (24-38) Sodium Level 143 mmol/L (136-145) Potassium Level 3.6 mmol/L (3.5-5.1) Chloride Level 105 mmol/L (98-107) Carbon Dioxide Level 27 mmol/L (21-32) Anion Gap 11 (6-14) Blood Urea Nitrogen 17 mg/dL (8-26) Creatinine 1.1 mg/dL (0.7-1.3) Estimated GFR (Cockcroft-Gault) 66.8 BUN/Creatinine Ratio 15 (6-20) Glucose Level 90 mg/dL (70-99) Calcium Level 9.1 mg/dL (8.5-10.1) Magnesium Level 2.2 mg/dL (1.8-2.4) Total Bilirubin 0.4 mg/dL (0.2-1.0) Aspartate Amino Transf (AST/SGOT) 24 U/L (15-37) Alanine Aminotransferase (ALT/SGPT) 27 U/L (16-63) Alkaline Phosphatase 49 U/L (46-116) Creatine Kinase 246 U/L (39-308) Creatine Kinase MB (Mass) 3.9 ng/mL (0.0-3.6) Creatine Kinase MB Relative Index 1.6 % (0-4) Troponin I Quantitative 0.622 ng/mL (0.000-0.055) 0.559 ng/mL (0.000-0.055) 0.348 ng/mL (0.000-0.055) NS-Jsh-U-Type Natriuretic Peptide 886 pg/mL (0-124) Total Protein 7.9 g/dL (6.4-8.2) Albumin 4.1 g/dL (3.4-5.0) Albumin/Globulin Ratio 1.1 (1.0-1.7) Lipase 237 U/L (73-393) Urine Collection Type Unknown Urine Color Yellow Urine Clarity Clear Urine pH 6.0 Urine Specific [place] 1.020 Urine Protein Negative mg/dL (NEG-TRACE) Urine Glucose (UA) Negative mg/dL (NEG) Urine Ketones (Stick) Trace mg/dL (NEG) Urine Blood Negative (NEG) Urine Nitrite Negative (NEG) Urine Bilirubin Negative (NEG) Urine Urobilinogen Dipstick 1.0 mg/dL (0.2 mg/dL) Urine Leukocyte Esterase Negative (NEG) Urine RBC Occ /HPF (0-2) Urine WBC 0 /HPF (0-4) Urine Bacteria 0 /HPF (0-FEW) Urine Mucus Mod /LPF Heparin Anti-Xa Act, Unfractionated 0.29 IU/mL (0.30-0.70) Laboratory Tests Test 07/14/18 03:00 07/14/18 03:10 07/14/18 07:00 07/14/18 10:40 White Blood Count 8.2 x10^3/uL (4.0-11.0) Red Blood Count 4.72 x10^6/uL (4.30-5.70) Hemoglobin 15.1 g/dL (13.0-17.5) Hematocrit 43.7 % (39.0-53.0) Mean Corpuscular Volume 93 fL (79-100) Mean Corpuscular Hemoglobin 32 pg (25-35) Mean Corpuscular Hemoglobin Concent 35 g/dL (31-37) Red Cell Distribution Width 13.0 % (11.5-14.5) Platelet Count 169 x10^3/uL (140-400) Neutrophils (%) (Auto) 49 % (31-73) Lymphocytes (%) (Auto) 37 % (24-48) Monocytes (%) (Auto) 7 % (0-9) Eosinophils (%) (Auto) 6 % (0-3) Basophils (%) (Auto) 1 % (0-3) Neutrophils # (Auto) 4.1 x10^3uL (1.8-7.7) Lymphocytes # (Auto) 3.0 x10^3/uL (1.0-4.8) Monocytes # (Auto) 0.6 x10^3/uL (0.0-1.1) Eosinophils # (Auto) 0.5 x10^3/uL (0.0-0.7) Basophils # (Auto) 0.1 x10^3/uL (0.0-0.2) Prothrombin Time 12.7 SEC (11.7-14.0) Prothromb Time International Ratio 1.0 (0.8-1.1) Activated Partial Thromboplast Time 26 SEC (24-38) Sodium Level 143 mmol/L (136-145) Potassium Level 3.6 mmol/L (3.5-5.1) Chloride Level 105 mmol/L (98-107) Carbon Dioxide Level 27 mmol/L (21-32) Anion Gap 11 (6-14) Blood Urea Nitrogen 17 mg/dL (8-26) Creatinine 1.1 mg/dL (0.7-1.3) Estimated GFR (Cockcroft-Gault) 66.8 BUN/Creatinine Ratio 15 (6-20) Glucose Level 90 mg/dL (70-99) Calcium Level 9.1 mg/dL (8.5-10.1) Magnesium Level 2.2 mg/dL (1.8-2.4) Total Bilirubin 0.4 mg/dL (0.2-1.0) Aspartate Amino Transf (AST/SGOT) 24 U/L (15-37) Alanine Aminotransferase (ALT/SGPT) 27 U/L (16-63) Alkaline Phosphatase 49 U/L (46-116) Creatine Kinase 246 U/L (39-308) Creatine Kinase MB (Mass) 3.9 ng/mL (0.0-3.6) Creatine Kinase MB Relative Index 1.6 % (0-4) Troponin I Quantitative 0.622 ng/mL (0.000-0.055) 0.559 ng/mL (0.000-0.055) 0.348 ng/mL (0.000-0.055) HX-Goz-P-Type Natriuretic Peptide 886 pg/mL (0-124) Total Protein 7.9 g/dL (6.4-8.2) Albumin 4.1 g/dL (3.4-5.0) Albumin/Globulin Ratio 1.1 (1.0-1.7) Lipase 237 U/L (73-393) Urine Collection Type Unknown Urine Color Yellow Urine Clarity Clear Urine pH 6.0 Urine Specific [place] 1.020 Urine Protein Negative mg/dL (NEG-TRACE) Urine Glucose (UA) Negative mg/dL (NEG) Urine Ketones (Stick) Trace mg/dL (NEG) Urine Blood Negative (NEG) Urine Nitrite Negative (NEG) Urine Bilirubin Negative (NEG) Urine Urobilinogen Dipstick 1.0 mg/dL (0.2 mg/dL) Urine Leukocyte Esterase Negative (NEG) Urine RBC Occ /HPF (0-2) Urine WBC 0 /HPF (0-4) Urine Bacteria 0 /HPF (0-FEW) Urine Mucus Mod /LPF Heparin Anti-Xa Act, Unfractionated 0.29 IU/mL (0.30-0.70) Assessment/Plan Assessment/Plan 1. Chest pain. History of coronary artery disease and probable stenting. Minimal elevation of troponin at 0.662. At this time will continue on present medications including heparin. We'll attempt to obtain further old records. Tentatively will consider cardiac catheterization tomorrow for definitive diagnosis of the patient's vasculature. 2. Moderately decreased ejection fraction on most recent study of 35-40%. AICD in place. We'll recheck an echocardiogram. We'll obtain further old records on the patient's defibrillator. 3. Hypertension. Blood pressures under reasonable control. Continue present treatments. 4. Hyperlipidemia. Continue present medications and monitor lab. Thank you for allowing us to participate in the care of your patient. XU DOMINGUEZ MD Jul 14, 2018 14:23
[2018-07-14] MEDS ORDERED: SIMVASTATIN 40 MG TABLET. PO SCH (21:00)
[2018-07-15] VITALS (13 sets, daily range): BP systolic 81–118; BP diastolic 7–66
[2018-07-15] MEDS: HEPARIN 25,000UTS/500ML PREMIX 500 ML IV PRN (02:29)
[2018-07-15 04:33] LABS: CHOLESTEROL/HDL RATIO 3.1
[2018-07-15] MEDS ORDERED: IV NORMAL SALINE 1000ML BAG 1,000 ML IV SCH ×2 (08:00→11:03)
[2018-07-15] MEDS: POTASSIUM CHLORIDE 20 MEQ TABLET.ER. PO SCH (08:15)
[2018-07-15] MEDS: FUROSEMIDE 20 MG/2 ML VIAL. IVP SCH (08:18)
--- NOTE | 2018-07-15 08:18 | PDOC ---
PROGRESS NOTES Chief Complaint Chief Complaint A/P: NSTEMI - heparin GTT, cardiology consulted Acute systolic CHF exacerbation - mild exacerbation likely cause of NSTEMI or vice-versa with history of chronic systolic CHF EF 35-40% s/p AICD. No recent shocks, but device has not been interrogated. High Cholesterol - LDL 134 not at goal Hypertension - controlled, cont meds ETOH use - counseled on cessation Obesity - counseled on weight loss, look into cardiac rehab, if eligible CAD s/p 4 stents - appears to having unstable angina symptoms with NSTEMI currently. Cardiology consulted. FEN - NPO, ok for cardiac diet from my standpoint unless cardiology plans for angiogram PPX - heparin gtt FULL CODE Dispo - Inpatient CVC for NSTEMI and mild CHF exacerbation History of Present Illness History of Present Illness Mr Rubio is a 68yo M w/ PMHx systolic CHF EF 35-40% s/p AICD, High Cholesterol, Hypertension, ETOH use, obesity, CAD s/p 4 stents prior who presents with "feeling funny" and chest discomfort for the past day with some mild associated shortness of breath. Chest pain is 4/10, was substernal and has improved after NTG and heparin. He was found with elevated troponin 0.662, started on heparin infusion, contacted cardiology for admission. This morning his 4 hour troponin has come down to 0.559 and he feels some relief of his discomfort and is asking to eat. EKG - NSR at 60bpm, NO ST elevation, nonspecific t wave inversion III and aVF Went for cardiac cath this morning, apparently RCA likely chronically occluded, left sided disease, no interventions performed. He feels better, wishes for discharge home. Vitals Vitals Vital Signs Date Time Temp Pulse Resp B/P (MAP) Pulse Ox O2 Delivery O2 Flow Rate FiO2 07/15/18 07:00 97.6 60 18 97/60 (72) 92 Room Air 97.6 Physical Exam General: Alert, No acute distress Heart: Regular rate Abdomen: Normal bowel sounds Extremities: No clubbing, No cyanosis, Normal pulses, No tenderness/swelling, Other (scant edema bilaterally) Skin: No rashes, No breakdown, No significant lesion Labs LABS Laboratory Tests Test 07/14/18 10:40 07/14/18 17:45 07/14/18 23:45 Heparin Anti-Xa Act, Unfractionated 0.29 IU/mL (0.30-0.70) 0.44 IU/mL (0.30-0.70) 0.57 IU/mL (0.30-0.70) Troponin I Quantitative 0.348 ng/mL (0.000-0.055) Comment Review of Relevant I have reviewed the following items donny (where applicable) has been applied. Labs Laboratory Tests Test 07/14/18 03:00 07/14/18 03:10 07/14/18 07:00 07/14/18 10:40 White Blood Count 8.2 x10^3/uL (4.0-11.0) Red Blood Count 4.72 x10^6/uL (4.30-5.70) Hemoglobin 15.1 g/dL (13.0-17.5) Hematocrit 43.7 % (39.0-53.0) Mean Corpuscular Volume 93 fL (79-100) Mean Corpuscular Hemoglobin 32 pg (25-35) Mean Corpuscular Hemoglobin Concent 35 g/dL (31-37) Red Cell Distribution Width 13.0 % (11.5-14.5) Platelet Count 169 x10^3/uL (140-400) Neutrophils (%) (Auto) 49 % (31-73) Lymphocytes (%) (Auto) 37 % (24-48) Monocytes (%) (Auto) 7 % (0-9) Eosinophils (%) (Auto) 6 % (0-3) Basophils (%) (Auto) 1 % (0-3) Neutrophils # (Auto) 4.1 x10^3uL (1.8-7.7) Lymphocytes # (Auto) 3.0 x10^3/uL (1.0-4.8) Monocytes # (Auto) 0.6 x10^3/uL (0.0-1.1) Eosinophils # (Auto) 0.5 x10^3/uL (0.0-0.7) Basophils # (Auto) 0.1 x10^3/uL (0.0-0.2) Prothrombin Time 12.7 SEC (11.7-14.0) Prothromb Time International Ratio 1.0 (0.8-1.1) Activated Partial Thromboplast Time 26 SEC (24-38) Sodium Level 143 mmol/L (136-145) Potassium Level 3.6 mmol/L (3.5-5.1) Chloride Level 105 mmol/L (98-107) Carbon Dioxide Level 27 mmol/L (21-32) Anion Gap 11 (6-14) Blood Urea Nitrogen 17 mg/dL (8-26) Creatinine 1.1 mg/dL (0.7-1.3) Estimated GFR (Cockcroft-Gault) 66.8 BUN/Creatinine Ratio 15 (6-20) Glucose Level 90 mg/dL (70-99) Calcium Level 9.1 mg/dL (8.5-10.1) Magnesium Level 2.2 mg/dL (1.8-2.4) Total Bilirubin 0.4 mg/dL (0.2-1.0) Aspartate Amino Transf (AST/SGOT) 24 U/L (15-37) Alanine Aminotransferase (ALT/SGPT) 27 U/L (16-63) Alkaline Phosphatase 49 U/L (46-116) Creatine Kinase 246 U/L (39-308) Creatine Kinase MB (Mass) 3.9 ng/mL (0.0-3.6) Creatine Kinase MB Relative Index 1.6 % (0-4) Troponin I Quantitative 0.622 ng/mL (0.000-0.055) 0.559 ng/mL (0.000-0.055) 0.348 ng/mL (0.000-0.055) AR-Oku-Q-Type Natriuretic Peptide 886 pg/mL (0-124) Total Protein 7.9 g/dL (6.4-8.2) Albumin 4.1 g/dL (3.4-5.0) Albumin/Globulin Ratio 1.1 (1.0-1.7) Lipase 237 U/L (73-393) Urine Collection Type Unknown Urine Color Yellow Urine Clarity Clear Urine pH 6.0 Urine Specific [place] 1.020 Urine Protein Negative mg/dL (NEG-TRACE) Urine Glucose (UA) Negative mg/dL (NEG) Urine Ketones (Stick) Trace mg/dL (NEG) Urine Blood Negative (NEG) Urine Nitrite Negative (NEG) Urine Bilirubin Negative (NEG) Urine Urobilinogen Dipstick 1.0 mg/dL (0.2 mg/dL) Urine Leukocyte Esterase Negative (NEG) Urine RBC Occ /HPF (0-2) Urine WBC 0 /HPF (0-4) Urine Bacteria 0 /HPF (0-FEW) Urine Mucus Mod /LPF Triglycerides Level 51 mg/dL (0-150) Cholesterol Level 163 mg/dL (0-200) LDL Cholesterol, Calculated 101 mg/dL (0-100) VLDL Cholesterol, Calculated 10 mg/dL (0-40) Non-HDL Cholesterol Calculated 111 mg/dL (0-129) HDL Cholesterol 52 mg/dL (40-60) Cholesterol/HDL Ratio 3.1 Heparin Anti-Xa Act, Unfractionated 0.29 IU/mL (0.30-0.70) Test 07/14/18 17:45 07/14/18 23:45 Heparin Anti-Xa Act, Unfractionated 0.44 IU/mL (0.30-0.70) 0.57 IU/mL (0.30-0.70) Laboratory Tests Test 07/14/18 10:40 07/14/18 17:45 07/14/18 23:45 Heparin Anti-Xa Act, Unfractionated 0.29 IU/mL (0.30-0.70) 0.44 IU/mL (0.30-0.70) 0.57 IU/mL (0.30-0.70) Troponin I Quantitative 0.348 ng/mL (0.000-0.055) Medications Current Medications Aspirin (Robert Aspirin) 325 mg 1X ONCE PO Last administered on 07/14/18at 03:21; Start 07/14/18 at 02:45; Stop 07/14/18 at 02:47; Status DC Sodium Chloride 1,000 ml @ 1,000 mls/hr 1X ONCE IV Last administered on 07/14/18at 03:22; Start 07/14/18 at 02:30; Stop 07/14/18 at 03:29; Status DC Heparin Sodium (Porcine) (Heparin Sodium) 4,000 unit 1X ONCE IV Last adm inistered on 07/14/18at 04:38; Start 07/14/18 at 03:45; Stop 07/14/18 at 03:48; Status DC Heparin Sodium/ Dextrose 500 ml @ 0 mls/hr CONT PRN IV SEE I/O RECORD Last administered on 07/15/18at 02:29; Start 07/14/18 at 03:45 Ondansetron HCl (Zofran) 4 mg PRN Q8HRS PRN IV NAUSEA/VOMITING; Start 07/14/18 at 04:00; Stop 07/15/18 at 03:59; Status DC Fentanyl Citrate (Fentanyl 2ml Vial) 50 mcg PRN Q2HR PRN IV PAIN; Start 07/14/18 at 04:00 Aspirin (Children'S Aspirin) 81 mg DAILY PO ; Start 07/14/18 at 09:00; Stop 07/14/18 at 11:43; Status DC Carvedilol (Coreg) 6.25 mg BIDWMEALS PO Last administered on 07/14/18 18:06; Start 07/14/18 at 09:00 Clopidogrel Bisulfate (Plavix) 75 mg DAILY PO ; Start 07/14/18 at 09:00; Stop 07/14/18 at 11:15; Status DC Nitroglycerin (Nitrostat) 0.4 mg PRN Q5MIN PRN SL CHEST PAIN; Start 07/14/18 at 08:15 Lisinopril (Prinivil) 2.5 mg DAILY PO ; Start 07/14/18 at 09:00; Stop 07/14/18 at 11:42; Status DC Simvastatin (Zocor) 40 mg QHS PO Last administered on 07/14/18 21:38; Start 07/14/18 at 21:00 Potassium Chloride (Klor-Con) 20 meq DAILYWBKFT PO Last administered on 07/14/18 11:28; Start 07/14/18 at 10:30 Furosemide (Lasix) 20 mg DAILY IVP Last administered on 07/14/18 11:29; Start 07/14/18 at 11:00 Info (Anti-Coagulation Monitoring By Pharmacy) 1 each PRN DAILY PRN MC SEE COMMENTS Last administered on 07/14/18 11:59; Start 07/14/18 at 10:45 Aspirin (Children'S Aspirin) 81 mg HS PO Last administered on 07/14/18 21:38; Start 07/14/18 at 21:00 Lisinopril (Prinivil) 2.5 mg HS PO Last administered on 07/14/18at 21:39; Start 07/14/18 at 21:00 Sodium Chloride 1,000 ml @ 60 mls/hr [id number] IV ; Start 07/15/18 at 08:00 Active Scripts Active Reported Nitrostat (Nitroglycerin) 0.4 Mg Tab.subl 0.4 Mg SL PRN 1X Coreg (Carvedilol) 6.25 Mg Tablet 6.25 Mg PO BID Simvastatin 40 Mg Tablet 40 Mg PO DAILY Aspirin 325 Mg Tablet 81 Mg PO DAILY Clopidogrel (Clopidogrel Bisulfate) 75 Mg Tablet 75 Mg PO DAILY Lisinopril 2.5 Mg Tablet 2.5 Mg PO DAILY Vitals/I & O Vital Sign - Last 24 Hours 07/14/18 07/14/18 07/14/18 07/14/18 09:08 11:00 11:40 15:00 Temp 97.4 98.1 97.4 98.1 Pulse 60 60 60 73 Resp 18 18 B/P (MAP) 98/67 (77) 118/66 (83) 118/66 108/59 (75) Pulse Ox 100 100 O2 Delivery Room Air Room Air 07/14/18 07/14/18 07/14/18 07/14/18 18:06 19:15 20:25 21:39 Temp 97.7 97.7 Pulse 64 60 60 Resp 20 B/P (MAP) 121/62 112/72 (85) 112/72 Pulse Ox 97 O2 Delivery Room Air Room Air 07/14/18 07/15/18 07/15/18 22:45 03:05 07:00 Temp 97.7 97.7 97.6 97.7 97.7 97.6 Pulse 62 60 60 Resp 18 18 18 B/P (MAP) 114/70 (85) 110/66 (81) 97/60 (72) Pulse Ox 96 97 92 O2 Delivery Room Air Room Air Room Air Intake and Output0 07/14/18 07/14/18 07/15/18 14:59 22:59 06:59 Intake Total 180 ml 680 ml 300 ml Balance 180 ml 680 ml 300 ml CALEB AYALA MD Jul 15, 2018 08:18
[2018-07-15] MEDS: CARVEDILOL 6.25 MG TABLET. PO SCH (08:19)
[2018-07-15] MEDS ORDERED: LIDOCAINE 1% Multi-Dose 20 ML VIAL. ONE (10:01)
[2018-07-15] MEDS ORDERED: IODIXANOL 320 MG/ML 100 ML VIAL. ONE (10:01)
[2018-07-15] MEDS ORDERED: MIDAZOLAM HCL/PF 2 MG/2 ML VIAL. ONE ×2 (10:05→10:52)
[2018-07-15] MEDS ORDERED: fentaNYL PF VIAL 100 MCG/2 ML VIAL ONE (10:05)
--- NOTE | 2018-07-15 10:08 | PDOC ---
MODERATE SEDATION ASSESSMENT RISKS/ALTERNATIVES Risks/Alternatives Risks and alternatives of this type of sedation and procedure discussed with: RISK/ALTERNATIVES: Patient H & P ON CHART H & P H & P on chart and reviewed for co-morbid conditions and appropriate labs. H&P ON CHART: Yes STATUS PREG STATUS ASSESSED: N/A MEDS/ALLERGIES REVIEWED Meds/Allergies Reviewed Medications and Allergies including time and route of recently administered narcotics and sedatives. MEDS/ALLERGIES REVIEWED: Yes ASA RATING ASA RATING: II AIRWAY ASSESSMENT Airway Assessment Airway patency, oral function limitations, presence of caps, crowns, dentures, partials, and ability to extend neck assessed. AIRWAY ASSESSMENT: Yes MALLAMPATI SCORE MALLAMPATI SCORE: II PRE-SEDATION ASSESSMENT PRE-SEDATION ASSESSMENT: Yes XU DOMINGUEZ MD Jul 15, 2018 10:08
[2018-07-15] MEDS ORDERED: MIDAZOLAM HCL/PF 2 MG/2 ML VIAL. IV ONE (10:15)
[2018-07-15] MEDS ORDERED: CONTRAST GIVEN. MC PRN (10:15)
[2018-07-15] MEDS ORDERED: LIDOCAINE 1% Multi-Dose 20 ML VIAL. INJ ONE (10:15)
[2018-07-15] MEDS ORDERED: fentaNYL PF VIAL 100 MCG/2 ML VIAL IV ONE (10:15)
[2018-07-15] MEDS ORDERED: IODIXANOL 320 MG/ML 100 ML VIAL. IART ONE (10:15)
[2018-07-15] MEDS ORDERED: 0.9 % SODIUM CHLORIDE 10 ML DISP.SYRIN. IV PRN (11:15)
[2018-07-15] MEDS ORDERED: NITROGLYCERIN SUBLINGUAL 0.4 MG BOTTLE OF 25. SL PRN (11:15)
[2018-07-15] MEDS ORDERED: CARV6.25 PO (13:31)
--- NOTE | 2018-07-15 13:41 | PDOC3 ---
Discharge Summary Visit Information Date of Admission: Jul 14, 2018 Date of Discharge: Jul 15, 2018 Admitting Diagnosis: NSTEMI Final Diagnosis NSTEMI Brief Hospital Course Allergies Allergies Coded Allergies Type Severity Reaction Last Updated Verified No Known Drug Allergies 06/17/13 No Vital Signs Vital Signs Date Time Temp Pulse Resp B/P (MAP) Pulse Ox O2 Delivery O2 Flow Rate FiO2 07/15/18 11:24 60 14 99/63 (75) 97 Nasal Cannula 2.0 07/15/18 07:00 97.6 97.6 Lab Results Laboratory Tests Test 07/14/18 03:00 07/14/18 03:10 07/14/18 07:00 07/14/18 10:40 White Blood Count 8.2 x10^3/uL (4.0-11.0) Red Blood Count 4.72 x10^6/uL (4.30-5.70) Hemoglobin 15.1 g/dL (13.0-17.5) Hematocrit 43.7 % (39.0-53.0) Mean Corpuscular Volume 93 fL (79-100) Mean Corpuscular Hemoglobin 32 pg (25-35) Mean Corpuscular Hemoglobin Concent 35 g/dL (31-37) Red Cell Distribution Width 13.0 % (11.5-14.5) Platelet Count 169 x10^3/uL (140-400) Neutrophils (%) (Auto) 49 % (31-73) Lymphocytes (%) (Auto) 37 % (24-48) Monocytes (%) (Auto) 7 % (0-9) Eosinophils (%) (Auto) 6 % (0-3) Basophils (%) (Auto) 1 % (0-3) Neutrophils # (Auto) 4.1 x10^3uL (1.8-7.7) Lymphocytes # (Auto) 3.0 x10^3/uL (1.0-4.8) Monocytes # (Auto) 0.6 x10^3/uL (0.0-1.1) Eosinophils # (Auto) 0.5 x10^3/uL (0.0-0.7) Basophils # (Auto) 0.1 x10^3/uL (0.0-0.2) Prothrombin Time 12.7 SEC (11.7-14.0) Prothromb Time International Ratio 1.0 (0.8-1.1) Activated Partial Thromboplast Time 26 SEC (24-38) Sodium Level 143 mmol/L (136-145) Potassium Level 3.6 mmol/L (3.5-5.1) Chloride Level 105 mmol/L (98-107) Carbon Dioxide Level 27 mmol/L (21-32) Anion Gap 11 (6-14) Blood Urea Nitrogen 17 mg/dL (8-26) Creatinine 1.1 mg/dL (0.7-1.3) Estimated GFR (Cockcroft-Gault) 66.8 BUN/Creatinine Ratio 15 (6-20) Glucose Level 90 mg/dL (70-99) Calcium Level 9.1 mg/dL (8.5-10.1) Magnesium Level 2.2 mg/dL (1.8-2.4) Total Bilirubin 0.4 mg/dL (0.2-1.0) Aspartate Amino Transf (AST/SGOT) 24 U/L (15-37) Alanine Aminotransferase (ALT/SGPT) 27 U/L (16-63) Alkaline Phosphatase 49 U/L (46-116) Creatine Kinase 246 U/L (39-308) Creatine Kinase MB (Mass) 3.9 ng/mL (0.0-3.6) Creatine Kinase MB Relative Index 1.6 % (0-4) Troponin I Quantitative 0.622 ng/mL (0.000-0.055) 0.559 ng/mL (0.000-0.055) 0.348 ng/mL (0.000-0.055) FR-Fuh-J-Type Natriuretic Peptide 886 pg/mL (0-124) Total Protein 7.9 g/dL (6.4-8.2) Albumin 4.1 g/dL (3.4-5.0) Albumin/Globulin Ratio 1.1 (1.0-1.7) Lipase 237 U/L (73-393) Urine Collection Type Unknown Urine Color Yellow Urine Clarity Clear Urine pH 6.0 Urine Specific [place] 1.020 Urine Protein Negative mg/dL (NEG-TRACE) Urine Glucose (UA) Negative mg/dL (NEG) Urine Ketones (Stick) Trace mg/dL (NEG) Urine Blood Negative (NEG) Urine Nitrite Negative (NEG) Urine Bilirubin Negative (NEG) Urine Urobilinogen Dipstick 1.0 mg/dL (0.2 mg/dL) Urine Leukocyte Esterase Negative (NEG) Urine RBC Occ /HPF (0-2) Urine WBC 0 /HPF (0-4) Urine Bacteria 0 /HPF (0-FEW) Urine Mucus Mod /LPF Triglycerides Level 51 mg/dL (0-150) Cholesterol Level 163 mg/dL (0-200) LDL Cholesterol, Calculated 101 mg/dL (0-100) VLDL Cholesterol, Calculated 10 mg/dL (0-40) Non-HDL Cholesterol Calculated 111 mg/dL (0-129) HDL Cholesterol 52 mg/dL (40-60) Cholesterol/HDL Ratio 3.1 Heparin Anti-Xa Act, Unfractionated 0.29 IU/mL (0.30-0.70) Test 07/14/18 17:45 07/14/18 23:45 07/15/18 08:35 Heparin Anti-Xa Act, Unfractionated 0.44 IU/mL (0.30-0.70) 0.57 IU/mL (0.30-0.70) 0.39 IU/mL (0.30-0.70) Laboratory Tests Test 07/14/18 17:45 07/14/18 23:45 07/15/18 08:35 Heparin Anti-Xa Act, Unfractionated 0.44 IU/mL (0.30-0.70) 0.57 IU/mL (0.30-0.70) 0.39 IU/mL (0.30-0.70) Brief Hospital Course Mr Rubio is a 68yo M w/ PMHx systolic CHF EF 35-40% s/p AICD, High Cholesterol, Hypertension, ETOH use, obesity, CAD s/p 4 stents prior who presents with "feeling funny" and chest discomfort for the past day with some mild associated shortness of breath. Chest pain is 4/10, was substernal and has improved after NTG and heparin. He was found with elevated troponin 0.662, started on heparin infusion, contacted cardiology for admission. This morning his 4 hour troponin has come down to 0.559 and he feels some relief of his discomfort and is asking to eat. EKG - NSR at 60bpm, NO ST elevation, nonspecific t wave inversion III and aVF Went for cardiac cath 07/15/18, apparently RCA likely chronically occluded, left sided disease, no interventions performed. He feels better, wishes for discharge home. A/P: NSTEMI - heparin GTT, cardiology consulted for cath as above Acute systolic CHF exacerbation - mild exacerbation resolved with some IV diuresis High Cholesterol - LDL 134 not at goal Hypertension - controlled, cont meds ETOH use - counseled on cessation Obesity - counseled on weight loss, look into cardiac rehab, if eligible CAD s/p 4 stents - appears to having unstable angina symptoms with NSTEMI now resolved s/p cath F/u cardiology outpatient. BP on the low side, will cut his coreg in half, cont lisinopril Greater than 30 minutes spent on discharge. Discharge Information Condition at Discharge: Improved Follow Up: Weeks (1) Disposition/Orders: D/C to Home Scheduled Aspirin (Aspirin) 325 Mg Tablet, 81 MG PO DAILY, (Reported) Entered as Reported by: JOYCE YOST on 02/25/131529 Last Action: Continued on 07/14/18807 by CALEB AYALA MD Carvedilol (Coreg ) 6.25 Mg Tablet, 3.125 MG PO BID for CHF for 30 Days, #30 Prescribed by: CALEB AYALA MD on 07/15/18 1331 Lisinopril (Lisinopril) 2.5 Mg Tablet, 2.5 MG PO DAILY, (Reported) Entered as Reported by: JOYCE YOST on 02/25/13 152 Last Action: Converted on 07/14/18807 by CALEB AYALA MD Nitroglycerin (Nitrostat) 0.4 Mg Tab.subl, 0.4 MG SL PRN 1X, (Reported) Entered as Reported by: JOYCE YOST on 02/25/13 153 Last Action: Continued on 07/14/18807 by CALEB AYALA MD Simvastatin (Simvastatin) 40 Mg Tablet, 40 MG PO DAILY, (Reported) Entered as Reported by: JOYCE YOST on 02/25/131530 Last Action: Converted on 07/14/18807 by CALEB AYALA MD Discontinued Medications Aspirin (Aspirin Ec) 81 Mg Tablet.dr, 81 MG PO DAILY for heart , (Reported) Entered as Reported by: FAREED RECIO RN on 07/14/18 06 Last Action: Discontinued on 07/14/18623 by FAREED RECIO RN Carvedilol (Carvedilol) 6.25 Mg Tablet, 6.25 MG PO BID92 for htn, (Reported) Entered as Reported by: FAREED RECIO RN on 07/14/18621 Last Action: Discontinued on 07/14/18623 by FAREED RECIO RN Clopidogrel Bisulfate (Clopidogrel) 75 Mg Tablet, 75 MG PO DAILY, (Reported) Entered as Reported by: JOYCE YOST on 02/25/13 1530 Last Action: Continued on 07/14/18807 by MD JAMIE RUBI CHRISTOPHER S MD Jul 15, 2018 13:41
--- NOTE | 2018-07-15 17:10 | CARD ---
MR#: [id number] Date of Study: 07/15/2018 Ordering Physician: XU BLAKELY, Referring Physician: CALEB AYALA Tech: RYAN ZHANG RTR APPROVED REPORT Procedures Left heart catheterization Left ventriculogram Selective coronary angiogram The patient is a 68-year-old male who was admitted with a brief episode of chest pain and a minimally elevated troponin level of less than 1.0. However he has a history of a catheterization in 2013 duri ng an acute infarction in which his LAD was occluded and was stented. Also at that time he had a isaacs nt right coronary artery stent. In this setting cardiac catheterization was recommended for evaluatio n of his coronary artery disease. Risks and benefits were discussed with the patient and he agreed to proceed. After informed consent was obtained the patient was brought to the heart catheterization lab. The are a of the right femoral artery was prepared the usual manner with Betadine, sterile draping and local anesthetic. An 18-gauge needle was used to enter the right femoral artery, a wire placed and a 6 Fren ch sheath placed over the wire. A 6 Israeli JL4 diagnostic catheter was used to engage the left system and sequential injections in various views were obtained. A [address] diagnostic [address] was used to engage the right system and sequential injections in various views were obtained. A pigtail catheter was advanced to the left ventricle. A 30 ROBLES left ventricular gram was performed. P ullback pressures were measured. The catheter was removed from the patient. All catheter exchanges we re over a J-wire. Imaging of the sheath showed normal placement. The sheath was removed and sealed wi th an Angio-Seal product. The patient was moved to the holding area in stable condition. Findings. Hemodynamics. Aortic root pressure 100/12, 18. Aortic root pressure of 96/66. Coronaries. Left main. Left main was normal size vessel with a 20% lesion. Left anterior descending. The LAD was a moderate size vessel. Previously placed stents during his in farction were widely patent. Left circumflex. The left circumflex is a moderate size vessel. It had a proximal 25-30% lesion. It a lso had an ostial obtuse marginal one lesion of 80%. Of note these lesions were unchanged from the pr evious angiogram in 2014. Right coronary artery. The right coronary artery had a mid chronic occlusion in the area of a previou sly placed stent. Of note on his previous angiogram in 2013 this stent was patent. Left ventriculogram. The left ventricle showed global hypokinesis most severe however in the inferior wall. Ejection fract ion was estimated at 30-35%. <Conclusion> Patent stents in the LAD. Chronic occlusion of the right coronary artery in its midportion in an area of stenting. This was pat ent on his previous catheterization in 2013. Ostial obtuse marginal one lesion of 80%. This was unchanged from his previous angiogram. Decreased LV systolic function with an ejection fraction of 30-35%. Signed by : Xu Blakely MD Electronically Approved : 07/15/2018 17:10:24
--- NOTE | 2018-07-15 17:13 | NUR ---
Discharge Note: ROLANDO ORTA Discharge instructions and discharge home medications reviewed with Patient and a copy given. All questions have been answered and understanding verbalized. The following instructions and handouts were given: Post Cardiac Cath discharge teaching, low sodium diet, and cardiac diet. Discontinued iv lines and catheter intact. Patient discharged to home with self-care via private vehicle.
--- NOTE | 2018-07-15 17:29 | RAD ---
CHEST PA LATERAL Clinical indications: Dyspnea with exertion COMPARISON: January 04, 2013. 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 No acute lung infiltrate or pleural effusion or pulmonary edema or lung mass or pneumothorax is seen. Bipolar atrioventricular pacemaker is again evident. The heart size, pulmonary vasculature, mediastinum and both milly are stable. The osseous structures appear intact. Impression: No acute radiographic abnormality is seen. Electronically signed by: Arnaldo Ojeda MD (07/15/2018 5:26 PM) [id number]
== END 2018-07-15 17:32 | disposition home or self-care (01) | DRG 280 ==
LOC: ER 23:47 → 2 NORTH 07-14 03:50
PROVIDERS: ADMIT Internal Medicine; ATTEND Internal Medicine
PROC: 4A023N7 Measurement of Cardiac Sampling and Pressure, Left Heart, Percutaneous Approach (ICD-10-PCS; principal; 2018-07-15)
PROC: B2111ZZ Fluoroscopy of Multiple Coronary Arteries using Low Osmolar Contrast (ICD-10-PCS; 2018-07-15)
PROC: B2151ZZ Fluoroscopy of Left Heart using Low Osmolar Contrast (ICD-10-PCS; 2018-07-15)
DX: T82.855A Stenosis of coronary artery stent, initial encounter (principal); I21.4 Non-ST elevation (NSTEMI) myocardial infarction; I50.23 Acute on chronic systolic (congestive) heart failure; E78.00 Pure hypercholesterolemia, unspecified; I11.0 Hypertensive heart disease with heart failure; E66.9 Obesity, unspecified; I25.10 Atherosclerotic heart disease of native coronary artery without angina pectoris; E78.5 Hyperlipidemia, unspecified; Z96.652 Presence of left artificial knee joint; Y83.8 Other surgical procedures as the cause of abnormal reaction of the patient, or of later complication, without mention of misadventure at the time of the procedure; Z72.89 Other problems related to lifestyle; I25.2 Old myocardial infarction; Z90.49 Acquired absence of other specified parts of digestive tract; Z95.810 Presence of automatic (implantable) cardiac defibrillator; Z68.28 Body mass index [BMI] 28.0-28.9, adult; Z95.5 Presence of coronary angioplasty implant and graft; Z82.49 Family history of ischemic heart disease and other diseases of the circulatory system; Z71.41 Alcohol abuse counseling and surveillance of alcoholic; Y92.89 Other specified places as the place of occurrence of the external cause
CPT/HCPCS: 93458; 99285; G0269; 36415; 71046; 80053; 80061; 81001; 82553; 83690; 83735; 83880; 84484; 85025; 85520; 85610; 85730; 93005; 96361; 96374; 99152; 99153; C1760; C1769; C1892; J1644; J1940; J2250; J3010; J7030; Q9967; C1771

== ENCOUNTER → 2018-10-18 | Outpatient (CLI) | payer OTHER ==
[2018-07-15 16:25] VITALS: BP 118/7
[~2018-10-18] MED LIST changes: +ASPI-612 PO; +CARV6.253 PO
[2018-10-18 17:40] LABS: BASO # 0.1 x10^3/uL (0.0-0.2); BASO % 1 % (0-3); EOS # 0.7 x10^3/uL (0.0-0.7); EOS % 8 % (0-3); HEMATOCRIT 47.4 % (39.0-53.0); HEMOGLOBIN 16.4 g/dL (13.0-17.5); LYMPH % 23 % (24-48); MEAN CORPUSCULAR HEMOGLOBIN 32 pg (25-35); MEAN CORPUSCULAR HGB CONC 35 g/dL (31-37); MEAN CORPUSCULAR VOLUME 94 fL (79-100); MONO # 0.7 x10^3/uL (0.0-1.1); MONO % 8 % (0-9); NEUT # 5.3 x10^3/uL (1.8-7.7); NEUT % 61 % (31-73); PLATELET COUNT 185 x10^3/uL (140-400); RED BLOOD COUNT 5.07 x10^6/uL (4.30-5.70); RED CELL DISTRIBUTION WIDTH 13.3 % (11.5-14.5); WHITE BLOOD COUNT 8.8 x10^3/uL (4.0-11.0)
[2018-10-18 17:57] LABS: ALBUMIN 4.5 g/dL (3.4-5.0); CALCIUM 9.2 mg/dL (8.5-10.1); CREATININE 1.1 mg/dL (0.7-1.3); GFR 66.8; POTASSIUM 4.4 mmol/L (3.5-5.1); TOTAL BILIRUBIN 0.6 mg/dL (0.2-1.0); TOTAL PROTEIN 8.8 g/dL (6.4-8.2)
[2018-10-18 17:59] LABS: CHOLESTEROL/HDL RATIO 3.7
[2018-10-19 01:11] LABS: HEMOGLOBIN A1C 5.4 % (4.8-5.6)
== END | disposition home or self-care (01) ==
LOC: SPEC 17:08
PROVIDERS: ATTEND Nurse Practitioner
DX: Z13.1 Encounter for screening for diabetes mellitus (principal); Z12.5 Encounter for screening for malignant neoplasm of prostate; E78.5 Hyperlipidemia, unspecified; I11.0 Hypertensive heart disease with heart failure; I50.22 Chronic systolic (congestive) heart failure; E78.00 Pure hypercholesterolemia, unspecified
CPT/HCPCS: 36415; 80053; 80061; 83036; 83880; 84443; 85025; G0103

== ENCOUNTER → 2019-01-21 | Day surgery (SDC) | payer OTHER ==
[~2019-01-21] MED LIST changes: +IV RINGERS,LACTATED 1000ML 1,000 ML IV SCH; +MIDAZOLAM HCL/PF 5 MG/5 ML VIAL. IV ONE; +MIDAZOLAM HCL/PF 5 MG/5 ML VIAL. ONE; -NITR0.4T SL; +NITR0.4T24 SL; +SIMV40TA18 PO; -SIMV40TA3 PO; +diphenhydrAMINE 50 MG/ML VIAL IV ONE; +diphenhydrAMINE 50 MG/ML VIAL ONE; +fentaNYL PF VIAL 100 MCG/2 ML VIAL IV ONE; +fentaNYL PF VIAL 100 MCG/2 ML VIAL ONE
[2019-01-21 18:15] VITALS: BP 141/76
--- NOTE | 2019-01-23 14:07 | PATHOLOGY ---
[facility] Accession Number: [id number] . 01 Material submitted: . PART A: hepatic flexure - HEPATIC FLEXURE POLYP PART B: colon - SIGMOID POLYP. Modifiers: sigmoid . 01 Clinical history: . Dysphagia, Hx polyps . 02 Diagnosis: A. Colon, hepatic flexure, biopsy: - Hyperplastic polyps, approximately three fragments. . B. Colon, sigmoid, biopsy: - Hyperplastic polyp. . (SKM:mm; 01/23/2019) [facility] 01/23/2019 1222 Local . 02 Electronically signed: . Kendall Hernandez MD, Pathologist NPI- [id number] . 01 Gross description: . A. Received in formalin labeled "[place], hepatic flexure polyp," are 3 segments of brown soft tissue measuring 1.6 x 0.7 x 0.3 cm in aggregate dimensions and ranging from 0.6 to 0.7 cm in maximum dimension. The specimen is submitted entirely in cassette A1. . B. Received in formalin labeled "[place], sigmoid polyp," is a single segment of brown soft tissue measuring 0.3 cm in maximum dimension. The specimen is entirely submitted in cassette B1. (TSD; 01/22/2019) TOB/TOB 01/22/2019 2251 Local . 02 Pathologist provided ICD-10: K63.5 . 02 CPT . 699744, [id number] Specimen Comment: A courtesy copy of this report has been sent to [phone], [phone] Specimen Comment: [id number] Specimen Comment: Report sent to and Performed at: [address], [place] [id number] MD Aureliano Escamilla MD Phone: [phone] Performed at: [address] [id number] MD Colin Ortega MD Phone: [phone]
== END | disposition home or self-care (01) ==
LOC: ENDOS 15:25
PROVIDERS: ATTEND Internal Medicine Gastroenterology
DX: Z12.11 Encounter for screening for malignant neoplasm of colon (principal); K63.5 Polyp of colon; K29.50 Unspecified chronic gastritis without bleeding; K22.2 Esophageal obstruction; K57.30 Diverticulosis of large intestine without perforation or abscess without bleeding; K64.0 First degree hemorrhoids; I10 Essential (primary) hypertension; I49.9 Cardiac arrhythmia, unspecified; K63.89 Other specified diseases of intestine; F15.90 Other stimulant use, unspecified, uncomplicated; Z79.82 Long term (current) use of aspirin; Z79.899 Other long term (current) drug therapy; Z90.49 Acquired absence of other specified parts of digestive tract; Z98.890 Other specified postprocedural states; Z98.52 Vasectomy status; Z95.0 Presence of cardiac pacemaker; Z72.89 Other problems related to lifestyle
CPT/HCPCS: 43235; 43450; 45385; 88305; J1200; J2250; J3010; 45384; 99153

== ENCOUNTER → 2019-03-17 | Outpatient (CLI) | payer OTHER ==
[2019-01-21 18:15] VITALS: BP 141/76
[~2019-03-17] MED LIST changes: -IV RINGERS,LACTATED 1000ML 1,000 ML IV SCH; -MIDAZOLAM HCL/PF 5 MG/5 ML VIAL. IV ONE; -MIDAZOLAM HCL/PF 5 MG/5 ML VIAL. ONE; -diphenhydrAMINE 50 MG/ML VIAL IV ONE; -diphenhydrAMINE 50 MG/ML VIAL ONE; -fentaNYL PF VIAL 100 MCG/2 ML VIAL IV ONE; -fentaNYL PF VIAL 100 MCG/2 ML VIAL ONE
[2019-03-17 12:31] LABS: ALBUMIN 3.5 g/dL (3.4-5.0); CALCIUM 8.4 mg/dL (8.5-10.1); CREATININE 1.1 mg/dL (0.7-1.3); DIRECT BILIRUBIN 0.1 mg/dL (0.0-0.2); GFR 66.8; POTASSIUM 4.2 mmol/L (3.5-5.1); TOTAL BILIRUBIN 0.3 mg/dL (0.2-1.0); TOTAL PROTEIN 6.6 g/dL (6.4-8.2)
[2019-03-17 12:39] LABS: CHOLESTEROL/HDL RATIO 3.8
== END | disposition home or self-care (01) ==
LOC: SPEC 12:00
PROVIDERS: ATTEND Internal Medicine Cardiovascular Disease
DX: I25.10 Atherosclerotic heart disease of native coronary artery without angina pectoris (principal); I10 Essential (primary) hypertension; E78.5 Hyperlipidemia, unspecified
CPT/HCPCS: 36415; 80048; 80061; 80076

== ENCOUNTER → 2019-08-28 | Outpatient (CLI) | payer OTHER ==
[2019-01-21 18:15] VITALS: BP 141/76
[~2019-08-28] MED LIST changes: -ASPI-612 PO; +ASPI-886 PO
[2019-08-28 17:55] LABS: BASO # 0.1 x10^3/uL (0.0-0.2); BASO % 1 % (0-3); EOS # 0.7 x10^3/uL (0.0-0.7); EOS % 10 % (0-3); HEMATOCRIT 42.9 % (39.0-53.0); HEMOGLOBIN 15.1 g/dL (13.0-17.5); LYMPH # 1.9 x10^3/uL (1.0-4.8); LYMPH % 27 % (24-48); MEAN CORPUSCULAR HEMOGLOBIN 33 pg (25-35); MEAN CORPUSCULAR HGB CONC 35 g/dL (31-37); MEAN CORPUSCULAR VOLUME 93 fL (79-100); MONO # 0.6 x10^3/uL (0.0-1.1); MONO % 8 % (0-9); NEUT # 3.8 x10^3/uL (1.8-7.7); NEUT % 54 % (31-73); PLATELET COUNT 192 x10^3/uL (140-400); RED BLOOD COUNT 4.62 x10^6/uL (4.30-5.70); RED CELL DISTRIBUTION WIDTH 13.5 % (11.5-14.5); WHITE BLOOD COUNT 6.9 x10^3/uL (4.0-11.0)
[2019-08-28 18:16] LABS: ALBUMIN/GLOBULIN RATIO 1.1 (1.0-1.7); CALCIUM 8.6 mg/dL (8.5-10.1); CREATININE 1.2 mg/dL (0.7-1.3); GFR 60.2; MAGNESIUM 2.2 mg/dL (1.8-2.4); POTASSIUM 4.1 mmol/L (3.5-5.1); TOTAL BILIRUBIN 0.5 mg/dL (0.2-1.0); TOTAL PROTEIN 7.7 g/dL (6.4-8.2)
[2019-08-28 18:18] LABS: CHOLESTEROL/HDL RATIO 3.7
[2019-08-29 07:17] LABS: HEMOGLOBIN A1C 5.5 % (4.8-5.6)
== END | disposition home or self-care (01) ==
LOC: SPEC 17:30
PROVIDERS: ATTEND Family Medicine
DX: Z12.5 Encounter for screening for malignant neoplasm of prostate (principal); Z00.00 Encounter for general adult medical examination without abnormal findings; E55.9 Vitamin D deficiency, unspecified; I50.22 Chronic systolic (congestive) heart failure
CPT/HCPCS: 80053; 80061; 82306; 83036; 83735; 83880; 84443; 85025; G0103; 36415

== ENCOUNTER → 2019-12-23 | Outpatient (CLI) | payer OTHER ==
[2019-01-21 18:15] VITALS: BP 141/76
--- NOTE | 2019-12-23 15:33 | CARD ---
MR#: [id number] Date of Study: 12/23/2019 Ordering Physician: XU DOMINGUEZ, Referring Physician: UX DOMINGUEZ, Tech: Windy Hanley APPROVED REPORT EXAM: Two-dimensional and M-mode echocardiogram with Doppler and color Doppler. Other Information Quality : AverageHR: 60bpm INDICATION Prior SD Surgery/Intervention ICD/Pacemaker: Date: 2012 RISK FACTORS Hyperlipidemia 2D DIMENSIONS Left Atrium(2D)3.7 (1.6-4.0cm)IVSd1.3 (0.7-1.1cm) Aortic Root(2D)3.3 (2.0-3.7cm)LVDd5.6 (3.9-5.9cm) LVOT Diameter2.2 (1.8-2.4cm)PWd1.2 (0.7-1.1cm) LVDs3.8 (2.5-4.0cm)FS (%) 32.0 % SV92.4 mlLVEF(%)59.5 (>50%) Aortic Valve AoV Peak Moreno.124.8cm/sAoV VTI24.1cm AO Peak GR.6.2mmHgLVOT Peak Moreno.80.7cm/s LVOT VTI 16.69cmAO Mean GR.4mmHg NAZARIO (VMAX)1.76me1KLL (VTI)2.55cm2 Mitral Valve MV E Ajvcbzhz70.5cm/sMV DECEL [id number] MV A Wbeoolei08.4cm/sMV QFR10jb E/A Ratio0.8MVA (PHT)2.45cm2 TDI E/Lateral E'4.3E/Medial E'7.4 Pulmonary Valve PV Peak Rjvfcuxq71.1cm/sPV Peak Grad.4mmHg Tricuspid Valve TR P. Tstdczrm981lt/sRAP TGODYCGP0xmIz TR Peak Gr.86egMdWPMX27waIr Pulmonary Vein S1 Xoujftsi99.2cm/sD2 Moitmvsc00.1cm/s PVa jhnsmlfp370nqcm LEFT VENTRICLE The left ventricle is normal size. There is mild to moderate concentric left ventricular hypertrophy. The left ventricular systolic function is moderately decreased. The Ejection Fraction is 40-45%. The re is global hypokinesis of the left ventricle with severe septal and anterior wall hypokinesis. Leger smitral Doppler flow pattern is Grade I-abnormal relaxation pattern. RIGHT VENTRICLE The right ventricle is normal size. There is normal right ventricular wall thickness. The right ventr icular systolic function is normal. There is a pacemaker lead in the right ventricle. ATRIA The left atrium size is normal. The right atrium size is normal. The interatrial septum is intact wit h no evidence for an atrial septal defect or patent foramen ovale as noted on 2-D or Doppler imaging. AORTIC VALVE The aortic valve is calcified but opens well. Doppler and Color Flow revealed trace aortic regurgitat ion. There is no significant aortic valvular stenosis. Calculated aortic valve area is 2.39 cm2 with maximum pressure gradient of 8 mmHg and mean pressure gradient of 5 mmHg. MITRAL VALVE The mitral valve is normal in structure and function. There is no evidence of mitral valve prolapse. There is no mitral valve stenosis. Doppler and Color-flow revealed trace mitral regurgitation. TRICUSPID VALVE The tricuspid valve is not well visualized. Doppler and Color Flow revealed trace tricuspid regurgita tion with an estimated PAP of 24 mmHg. There is no tricuspid valve stenosis. PULMONIC VALVE The pulmonic valve is not well visualized. Doppler and Color Flow revealed trace pulmonic valvular re gurgitation. There is no pulmonic valvular stenosis. GREAT VESSELS The aortic root is normal in size. The IVC was not visualized. PERICARDIAL EFFUSION There is no evidence of significant pericardial effusion. Critical Notification Critical Value: No <Conclusion> The left ventricular systolic function is moderately decreased. The Ejection Fraction is 40-45%. There is global hypokinesis of the left ventricle with severe septal and anterior wall hypokinesis. There is a pacemaker lead in the right ventricle. Signed by : Gus Eckert, Electronically Approved : 12/23/2019 15:33:04
== END ==
LOC: ECHO 13:01
PROVIDERS: ATTEND Internal Medicine Cardiovascular Disease
DX: I35.1 Nonrheumatic aortic (valve) insufficiency (principal); I51.7 Cardiomegaly; I25.2 Old myocardial infarction; Z95.0 Presence of cardiac pacemaker
CPT/HCPCS: 93306

== ENCOUNTER → 2020-05-31 | Outpatient (CLI) | payer OTHER ==
[2019-01-21 18:15] VITALS: BP 141/76
[2020-05-31 16:15] LABS: BASO # 0.1 x10^3/uL (0.0-0.2); BASO % 1 % (0-3); EOS # 0.5 x10^3/uL (0.0-0.7); EOS % 6 % (0-3); HEMATOCRIT 47.9 % (39.0-53.0); HEMOGLOBIN 16.5 g/dL (13.0-17.5); LYMPH # 1.9 x10^3/uL (1.0-4.8); LYMPH % 22 % (24-48); MEAN CORPUSCULAR HEMOGLOBIN 32 pg (25-35); MEAN CORPUSCULAR HGB CONC 34 g/dL (31-37); MEAN CORPUSCULAR VOLUME 94 fL (79-100); MONO # 0.6 x10^3/uL (0.0-1.1); MONO % 7 % (0-9); NEUT # 5.7 x10^3/uL (1.8-7.7); NEUT % 64 % (31-73); PLATELET COUNT 208 x10^3/uL (140-400); RED BLOOD COUNT 5.12 x10^6/uL (4.30-5.70); RED CELL DISTRIBUTION WIDTH 13.4 % (11.5-14.5); WHITE BLOOD COUNT 8.8 x10^3/uL (4.0-11.0)
[2020-05-31 16:52] LABS: ALBUMIN 4.3 g/dL (3.4-5.0); CHOLESTEROL/HDL RATIO 3.6; CREATININE 1.1 mg/dL (0.7-1.3); GFR 66.6; POTASSIUM 4.5 mmol/L (3.5-5.1); TOTAL BILIRUBIN 0.6 mg/dL (0.2-1.0); TOTAL PROTEIN 8.4 g/dL (6.4-8.2)
[2020-05-31 17:01] LABS: FREE T4 0.79 ng/dL (0.76-1.46); THYROID STIM HORMONE (TSH) 1.183 uIU/mL (0.358-3.74)
[2020-06-01 03:10] LABS: HEMOGLOBIN A1C 5.4 % (4.8-5.6)
== END ==
LOC: SPEC 15:40
PROVIDERS: ATTEND Family Medicine
DX: M25.561 Pain in right knee (principal); G89.29 Other chronic pain; M25.10 Fistula, unspecified joint; I25.10 Atherosclerotic heart disease of native coronary artery without angina pectoris
CPT/HCPCS: 36415; 80053; 80061; 82043; 83036; 84439; 84443; 85025

== ENCOUNTER → 2020-12-09 | Outpatient (CLI) | payer OTHER ==
[2019-01-21 18:15] VITALS: BP 141/76
[~2020-12-09] MED LIST changes: -LISI2.5T PO; +LISI2.5T12 PO
[2020-12-09 21:20] LABS: ALBUMIN/GLOBULIN RATIO 1.1 (1.0-1.7); CALCIUM 8.9 mg/dL (8.5-10.1); GFR 74.1; MAGNESIUM 2.3 mg/dL (1.8-2.4); POTASSIUM 5.4 mmol/L (3.5-5.1); TOTAL BILIRUBIN 0.3 mg/dL (0.2-1.0); TOTAL PROTEIN 7.8 g/dL (6.4-8.2)
[2020-12-09 21:22] LABS: CHOLESTEROL/HDL RATIO 2.6
== END ==
LOC: LAB 20:45
PROVIDERS: ATTEND Internal Medicine Cardiovascular Disease
DX: I10 Essential (primary) hypertension (principal); E78.2 Mixed hyperlipidemia; I25.5 Ischemic cardiomyopathy; I25.10 Atherosclerotic heart disease of native coronary artery without angina pectoris
CPT/HCPCS: 36415; 80053; 80061; 83735